=== PATIENT | female | born 1995 | race African-American/Black ===

== ENCOUNTER 2016-11-19 14:05 | Emergency (ER) | payer SELFPAY ==
[~2016-11-19] VITALS: Ht 162.6 cm; Wt 99.8 kg
[2016-11-19] MEDS ORDERED: IV NORMAL SALINE 1000ML BAG 1,000 ML IV SCH (15:00)
[2016-11-19] MEDS ORDERED: NAPROXEN 500 MG TABLET PO ONE (15:00)
[2016-11-19] MEDS ORDERED: IPRATRPIUM/ALBUTEROL 0.5/2.5MG 3 ML NEBU. NEB ONE (15:00)
[2016-11-19] MEDS ORDERED: PREDNISONE 20 MG TABLET PO ONE (15:00)
--- NOTE | 2016-11-19 15:00 | PHYS DOC ---
Past Medical History Past Medical History: Asthma, Bronchitis, Hypertension Additional Past Medical Histor: URI Past Surgical History: No Surgical History Alcohol Use: None Drug Use: None Adult General Chief Complaint Chief Complaint: Palpitations HPI HPI Patient is a 21 year old female who presents with chest tightness, shortness of breath, fever. Patient reports she has been having symptoms since yesterday. She also reports having a fever yesterday. The chest tightness is worse with movement. Otherwise no clear inciting or mitigating factors. She has not taken anything for symptoms. Patient says she has had similar symptoms in the past, but not quite this bad. No other acute complaints. Review of Systems Review of Systems Constitutional: Fever Eyes: Denies change in visual acuity or eye pain HENT: Denies nasal congestion or sore throat Respiratory: Cough, shortness of breath Cardiovascular: Tightness across chest GI: Denies abdominal pain, nausea, vomiting, bloody stools or diarrhea : Denies dysuria or hematuria Musculoskeletal: Denies back pain or joint pain Integument: Denies rash or skin lesions Neurologic: Denies headache, focal weakness or sensory changes Current Medications Current Medications Current Medications Medications (Trade) Dose Ordered Sig/Harjeet Start Time Stop Time Status Last Admin Dose Admin Albuterol/ Ipratropium (Duoneb) 3 ml 1X ONCE 11/19/16 15:00 11/19/16 15:06 DC 11/19/16 15:45 3 ML Naproxen (Naprosyn) 500 mg 1X ONCE 11/19/16 15:00 11/19/16 15:06 DC 11/19/16 15:34 500 MG Prednisone (Prednisone) 60 mg 1X ONCE 11/19/16 15:00 11/19/16 15:06 DC 11/19/16 15:34 60 MG Sodium Chloride (Iv Sodium Chloride 0.9% 1000ml Bag) 1,000 ml @ 1,000 mls/hr Q1H 11/19/16 15:00 11/19/16 15:59 DC 11/19/16 15:36 1,000 MLS/HR Allergies Allergies Allergies Coded Allergies Type Severity Reaction Last Updated Verified No Known Drug Allergies 05/30/14 No Physical Exam Physical Exam Constitutional: Well developed, well nourished, no acute distress, non-toxic appearance HENT: Normocephalic, atraumatic, bilateral external ears normal Eyes: EOMI, conjunctiva normal, no discharge Neck: Normal range of motion, no stridor Cardiovascular: Tachycardic, regular rhythm, no murmur Lungs & Thorax: Coarse breath sounds/wheezing throughout on expiration Abdomen: Bowel sounds normal, soft, non-distended, no TTP Skin: Warm, dry, no erythema, no rash Extremities: No obvious deformity, no edema Neurologic: Alert and oriented X 3, no gross deficits noted Current Patient Data Vital Signs Vital Signs Date Time Temp Pulse Resp B/P Pulse Ox O2 Delivery O2 Flow Rate FiO2 11/19/16 15:45 97 Room Air 11/19/16 15:37 113 22 137/67 11/19/16 14:22 98.2 98.2 Lab Values Laboratory Tests Test 11/19/16 14:33 11/19/16 15:25 POC Urine HCG, Qualitative Hcg negative (Negative) White Blood Count 8.9x10^3/uL (4.0-11.0) Red Blood Count 4.89x10^6/uL (3.50-5.40) Hemoglobin 9.1g/dL (12.0-15.5) L Hematocrit 30.7% (36.0-47.0) L Mean Corpuscular Volume 63fL (79-100) L Mean Corpuscular Hemoglobin 19pg (25-35) L Mean Corpuscular Hemoglobin Concent 30g/dL (31-37) L Red Cell Distribution Width 19.7% (11.5-14.5) H Platelet Count 390x10^3/uL (140-400) Neutrophils (%) (Auto) 65% (31-73) Lymphocytes (%) (Auto) 21% (24-48) L Monocytes (%) (Auto) 8% (0-9) Eosinophils (%) (Auto) 6% (0-3) H Basophils (%) (Auto) 0% (0-3) Neutrophils # (Auto) 5.8x10^3uL (1.8-7.7) Lymphocytes # (Auto) 1.8x10^3/uL (1.0-4.8) Monocytes # (Auto) 0.7x10^3/uL (0.0-1.1) Eosinophils # (Auto) 0.5x10^3/uL (0.0-0.7) Basophils # (Auto) 0.0x10^3/uL (0.0-0.2) Platelet Estimate Adequate (ADEQUATE) Polychromasia Slight Hypochromasia Mod Anisocytosis Slight Microcytosis Marked Target Cells Occ Ovalocytes Few Schistocytes Occ D-Dimer (Radha) 0.31ug/mlFEU (0.00-0.50) Sodium Level 143mmol/L (136-145) Potassium Level 3.5mmol/L (3.5-5.1) Chloride Level 104mmol/L (98-107) Carbon Dioxide Level 30mmol/L (21-32) Anion Gap 9 (6-14) Blood Urea Nitrogen 6mg/dL (7-20) L Creatinine 0.7mg/dL (0.6-1.0) Estimated GFR (Cockcroft-Gault) 125.5 Glucose Level 101mg/dL (70-99) H Calcium Level 9.2mg/dL (8.5-10.1) Troponin I Quantitative < 0.017ng/mL (0.000-0.055) Laboratory Tests 11/19/16 15:25 Laboratory Tests 11/19/16 15:25 EKG EKG EKG (my read): sinus rhythm, rate 122, normal axis, QTc 511ms, nonspecific T changes, no acute ST elevation Radiology/Procedures Radiology/Procedures CXR: IMPRESSION: No acute cardiopulmonary abnormality is detected. Course & Med Decision Making Course & Med Decision Making Pertinent Labs and Imaging studies reviewed. (See chart for details) Patient is 21-year-old female who presents with cough, shortness of breath, chest tightness. Suspect viral upper respiratory infection with asthma exacerbation. Will check EKG, chest x-ray, labs to evaluate. IV fluid bolus, breathing treatment, steroids, naproxen ordered for relief of symptoms. EKG and imaging results as above. Blood work unremarkable except for microcytic anemia. Discussed results with patient, who is feeling better at this time. Will discharge with prescription for steroid burst, albuterol inhaler, iron pills. Given instructions for close follow-up with PCP and return precautions. Dragon Disclaimer Dragon Disclaimer This electronic medical record was generated, in whole or in part, using a voice recognition dictation system. Departure Departure Impression: Primary Impression: Asthma exacerbation Additional Impressions: Upper respiratory infection Iron deficiency anemia Disposition: HOME, SELF-CARE Condition: IMPROVED Referrals: NO PCP (PCP) Patient Instructions: Asthma, Adult, Iron Deficiency Anemia, Upper Respiratory Infection, Adult Additional Instructions: Thank you for allowing us to provide care today in the Emergency Department. Take the provided medication as directed. If you have any further pain you can take acetaminophen, ibuprofen, or naproxen. Follow the directions on the label. Schedule a follow up appointment with your primary care doctor as soon as possible. Return promptly to the Emergency Department if you develop any new or concerning symptoms. Scripts Ferrous Sulfate 140 Mg Tablet.er140 Mg PO DAILY #30 Prov:RYDER RING MD 11/19/16 Prednisone 50 Mg Tablet1 Tab PO DAILY #4 TAB start taking 11/20/16 Prov:RYDER RING MD 11/19/16 Albuterol Sulfate (Proventil Hfa)6.7 Gm Hfa.aer.ad6.7 Gm IH Q4HRS PRN WHEEZING # 1 INHALER Ref 1 Prov:RYDER RING MD 11/19/16 Problem Qualifiers RYDER RING MD Nov 19, 2016 15:00
--- NOTE | 2016-11-19 15:19 | EKG ---
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 RI6.01 Unconfirmed report Electronically Signed On 11-25-2016 10:56:00 MECHANICAL ASSEMBLY by Seferino Gillis
[2016-11-19 15:37] VITALS: BP 137/67
[2016-11-19 15:39] LABS: BASO % 0 % (0-3); EOS % 6 % (0-3); HEMATOCRIT 30.7 % (36.0-47.0); HEMOGLOBIN 9.1 g/dL (12.0-15.5); LYMPH # 1.8 x10^3/uL (1.0-4.8); LYMPH % 21 % (24-48); MEAN CORPUSCULAR HEMOGLOBIN 19 pg (25-35); MEAN CORPUSCULAR HGB CONC 30 g/dL (31-37); MEAN CORPUSCULAR VOLUME 63 fL (79-100); MONO % 8 % (0-9); NEUT % 65 % (31-73); PLATELET COUNT 390 x10^3/uL (140-400); RED BLOOD COUNT 4.89 x10^6/uL (3.50-5.40); RED CELL DISTRIBUTION WIDTH 19.7 % (11.5-14.5); WHITE BLOOD COUNT 8.9 x10^3/uL (4.0-11.0)
[2016-11-19 15:50] LABS: CALCIUM 9.2 mg/dL (8.5-10.1); CREATININE 0.7 mg/dL (0.6-1.0); GFR 125.5; POTASSIUM 3.5 mmol/L (3.5-5.1)
--- NOTE | 2016-11-19 16:03 | RAD ---
Chest, 2 views, 11/19/2016: History: Chest pain, shortness of breath Comparison is made to a study from 02/06/2015. The heart size and pulmonary vascularity are normal. No pulmonary infiltrates are seen. There is no evidence of pleural fluid. IMPRESSION: No acute cardiopulmonary abnormality is detected.
[2016-11-19] MEDS ORDERED: PROVENTIL HFA6.7 G1 IH (17:14)
[2016-11-19] MEDS ORDERED: FERR140T2 PO (17:14)
[2016-11-19] MEDS ORDERED: PRED50TA PO (17:14)
[2016-11-19 17:45] LABS: ANISOCYTOSIS SLIGHT; HYPOCHROMIA MOD; MICROCYTOSIS MARKED; OVALOCYTES FEW; PLT ESTIMATE ADEQUATE (ADEQUATE); POLYCHROMASIA SLIGHT; SCHISTOCYTES OCC; TARGET CELLS OCC
== END 2016-11-19 17:33 | disposition home or self-care (01) ==
LOC: ER 14:05
DX: J45.901 Unspecified asthma with (acute) exacerbation (principal); D50.9 Iron deficiency anemia, unspecified; I10 Essential (primary) hypertension
CPT/HCPCS: 36415; 71020; 80048; 81025; 84484; 85007; 85027; 85379; 93005; 94250; 94640; 96360; 99285; J7030; J7512; J7620

== ENCOUNTER 2017-02-24 15:50 | Inpatient (IN) | payer SELFPAY ==
[~2017-02-24] VITALS: Ht 165.1 cm; Wt 95.8 kg
[~2017-02-24 15:50] MED LIST: FERR140T2 PO; PRED50TA PO; PROVENTIL HFA6.7 G1 IH
[2017-02-24 16:21] LABS: BASO # 0.1 x10^3/uL (0.0-0.2); BASO % 1 % (0-3); EOS % 7 % (0-3); HEMATOCRIT 30.7 % (36.0-47.0); HEMOGLOBIN 9.3 g/dL (12.0-15.5); LYMPH # 1.9 x10^3/uL (1.0-4.8); LYMPH % 15 % (24-48); MEAN CORPUSCULAR HEMOGLOBIN 19 pg (25-35); MEAN CORPUSCULAR HGB CONC 30 g/dL (31-37); MEAN CORPUSCULAR VOLUME 64 fL (79-100); MONO % 5 % (0-9); NEUT % 72 % (31-73); PLATELET COUNT 421 x10^3/uL (140-400); RED CELL DISTRIBUTION WIDTH 21.8 % (11.5-14.5); WHITE BLOOD COUNT 12.5 x10^3/uL (4.0-11.0)
[2017-02-24] MEDS ORDERED: methylPREDNISolone SOD SUCC PF 125 MG/2 ML VIAL. IV ONE (16:30)
[2017-02-24] MEDS ORDERED: ALBUTEROL SULFATE 2.5 MG/3 ML NEBU. CONT NEB ONE (16:30)
[2017-02-24] MEDS ORDERED: IV NORMAL SALINE 1000ML BAG 1,000 ML IV SCH (16:30)
[2017-02-24 16:43] LABS: CALCIUM 9.3 mg/dL (8.5-10.1); CREATININE 0.6 mg/dL (0.6-1.0); GFR 149.9; POTASSIUM 3.5 mmol/L (3.5-5.1)
[2017-02-24 16:49] LABS: ALBUMIN 3.8 g/dL (3.4-5.0); ALBUMIN/GLOBULIN RATIO 0.9 (1.0-1.7); TOTAL BILIRUBIN 0.5 mg/dL (0.2-1.0); TOTAL PROTEIN 8.2 g/dL (6.4-8.2)
[2017-02-24 17:18] LABS: BILIRUBIN,URINE NEGATIVE (NEG); GLUCOSE,URINE NEGATIVE (NEG); NITRITE,URINE NEGATIVE (NEG); PROTEIN,URINE NEGATIVE (NEG-TRACE); UROBILINOGEN,URINE 0.2 mg/dL (0.2 mg/dL)
--- NOTE | 2017-02-24 17:22 | PHYS DOC ---
Past Medical History Past Medical History: Asthma, Bronchitis, Hypertension Additional Past Medical Histor: URI Past Surgical History: No Surgical History Additional Information: 4 cigarettes daily Alcohol Use: None Drug Use: None Adult General Chief Complaint Chief Complaint: SHORTNESS OF BREATH HPI HPI Patient is a 21 year old female who presents with complaint of shortness of breath. Patient states that she has been having worsening asthma symptoms over the past 2 days, however she woke with severe symptoms this morning. Patient states that she is having significant difficulty breathing due to tightness in her chest. Patient used the last of her albuterol inhaler with no relief in symptoms. Patient denies any associated fevers or productive cough. Patient states that she is unable to walk farther than across a room without getting severely short of breath. Patient states that she has not been recently admitted to the hospital for asthma exacerbation. Patient does not follow with primary care doctor at this time. Patient denies any associated abdominal pain, nausea, or vomiting. Review of Systems Review of Systems Constitutional: Denies fever or chills [] Eyes: Denies change in visual acuity, redness, or eye pain [] HENT: Denies nasal congestion or sore throat [] Respiratory: Shortness of breath [] Cardiovascular: Denies chest pain or edema [] GI: Denies abdominal pain, nausea, vomiting, bloody stools or diarrhea [] : Denies dysuria or hematuria [] Musculoskeletal: Denies back pain or joint pain [] Integument: Denies rash or skin lesions [] Neurologic: Denies headache, focal weakness or sensory changes [] Current Medications Current Medications Current Medications Medications (Trade) Dose Ordered Sig/Harjeet Start Time Stop Time Status Last Admin Dose Admin Albuterol Sulfate (Ventolin Neb Soln) 10 mg 1X ONCE 02/24/17 16:30 02/24/17 16:31 DC 02/24/17 16:21 10 MG Methylprednisolone Sodium Succinate (SOLU-Medrol 125MG VIAL) 125 mg 1X ONCE 02/24/17 16:30 02/24/17 16:31 DC 02/24/17 16:21 125 MG Sodium Chloride 1,000 ml @ 1,000 mls/hr Q1H 02/24/17 16:30 02/24/17 17:29 DC 02/24/17 16:21 1,000 MLS/HR Allergies Allergies Allergies Coded Allergies Type Severity Reaction Last Updated Verified No Known Drug Allergies 05/30/14 No Physical Exam Physical Exam Constitutional: Alert, afebrile, appears in moderate to severe respiratory distress. [] HENT: Normocephalic, atraumatic, bilateral external ears normal, oropharynx moist, no oral exudates, nose normal. [] Eyes: PERRLA, EOMI, conjunctiva normal, no discharge. [] Neck: Normal range of motion, no tenderness, supple, no stridor. [] Cardiovascular: Tachycardia, regular rhythm, no murmur [] Lungs & Thorax: Moderate to severe restriction of air movement bilaterally, expiratory wheezes bilaterally, no rales [] Abdomen: Bowel sounds normal, soft, no tenderness, no masses, no pulsatile masses. [] Skin: Warm, dry, no erythema, no rash. [] Back: No tenderness, no CVA tenderness. [] Extremities: No tenderness, no cyanosis, no clubbing, ROM intact, no edema. [] Neurologic: Alert and oriented X 3, normal motor function, normal sensory function, no focal deficits noted. [] Current Patient Data Vital Signs Vital Signs Date Time Temp Pulse Resp B/P (MAP) Pulse Ox O2 Delivery O2 Flow Rate FiO2 02/24/17 16:45 128 24 136/69 (91) 95 Room Air Lab Values Laboratory Tests Test 02/24/17 16:10 02/24/17 17:10 White Blood Count 12.5 x10^3/uL (4.0-11.0) H Red Blood Count 4.80 x10^6/uL (3.50-5.40) Hemoglobin 9.3 g/dL (12.0-15.5) L Hematocrit 30.7 % (36.0-47.0) L Mean Corpuscular Volume 64 fL (79-100) L Mean Corpuscular Hemoglobin 19 pg (25-35) L Mean Corpuscular Hemoglobin Concent 30 g/dL (31-37) L Red Cell Distribution Width 21.8 % (11.5-14.5) H Platelet Count 421 x10^3/uL (140-400) H Neutrophils (%) (Auto) 72 % (31-73) Lymphocytes (%) (Auto) 15 % (24-48) L Monocytes (%) (Auto) 5 % (0-9) Eosinophils (%) (Auto) 7 % (0-3) H Basophils (%) (Auto) 1 % (0-3) Neutrophils # (Auto) 9.0 x10^3uL (1.8-7.7) H Lymphocytes # (Auto) 1.9 x10^3/uL (1.0-4.8) Monocytes # (Auto) 0.6 x10^3/uL (0.0-1.1) Eosinophils # (Auto) 0.8 x10^3/uL (0.0-0.7) H Basophils # (Auto) 0.1 x10^3/uL (0.0-0.2) Sodium Level 139 mmol/L (136-145) Potassium Level 3.5 mmol/L (3.5-5.1) Chloride Level 103 mmol/L (98-107) Carbon Dioxide Level 28 mmol/L (21-32) Anion Gap 8 (6-14) Blood Urea Nitrogen 5 mg/dL (7-20) L Creatinine 0.6 mg/dL (0.6-1.0) Estimated GFR (Cockcroft-Gault) 149.9 BUN/Creatinine Ratio 8 (6-20) Glucose Level 74 mg/dL (70-99) Calcium Level 9.3 mg/dL (8.5-10.1) Total Bilirubin 0.5 mg/dL (0.2-1.0) Aspartate Amino Transferase (AST) 19 U/L (15-37) Alanine Aminotransferase (ALT) 16 U/L (14-59) Alkaline Phosphatase 70 U/L (46-116) Total Protein 8.2 g/dL (6.4-8.2) Albumin 3.8 g/dL (3.4-5.0) Albumin/Globulin Ratio 0.9 (1.0-1.7) L Urine Collection Type Unknown Urine Color Yellow Urine Clarity Cloudy Urine pH 7.0 Urine Specific [place] <=1.005 Urine Protein Negative mg/dL (NEG-TRACE) Urine Glucose (UA) Negative mg/dL (NEG) Urine Ketones (Stick) Negative mg/dL (NEG) Urine Blood Negative (NEG) Urine Nitrite Negative (NEG) Urine Bilirubin Negative (NEG) Urine Urobilinogen Dipstick 0.2 mg/dL (0.2 mg/dL) Urine Leukocyte Esterase Trace (NEG) Urine RBC 0 /HPF (0-2) Urine WBC 1-4 /HPF (0-4) Urine Squamous Epithelial Cells Few /LPF Urine Bacteria Few /HPF (0-FEW) Laboratory Tests 02/24/17 16:10 Laboratory Tests 02/24/17 16:10 EKG EKG Interpreted by me: Heart rate 120, sinus tachycardia, normal intervals, normal axis, no acute ST/T-wave abnormalities present [] Radiology/Procedures Radiology/Procedures One view AP chest x-ray interpreted by me: No infiltrate, no effusions, normal cardiac silhouette [] Course & Med Decision Making Course & Med Decision Making Pertinent Labs and Imaging studies reviewed. (See chart for details) Patient was given 125 mg of IV Solu-Medrol and given 10 mg of albuterol per nebulizer treatment over one hour continuously. On reevaluation, patient's air movement has improved mild to moderately. Patient continues to be significantly short of breath with minimal exertion and patient's oxygen saturations are at 90 -91 percent. The patient requires admission to the hospital for further management of her acute asthma exacerbation. I spoke with Dr. Cantrell who accepted care of patient in hospital. Dragon Disclaimer Dragon Disclaimer This electronic medical record was generated, in whole or in part, using a voice recognition dictation system. Departure Departure Impression: Primary Impression: Acute severe exacerbation of asthma Disposition: ADMITTED INPATIENT Admitting Physician: Other Condition: GUARDED Referrals: NO PCP (PCP) LAURA MAC MD Feb 24, 2017 17:22
[2017-02-24 17:27] LABS: BACTERIA,URINE FEW /HPF (0-FEW); RBC,URINE 0 /HPF (0-2); SQUAMOUS EPITHELIAL CELL,UR FEW /LPF
--- NOTE | 2017-02-24 17:59 | ACF ---
Admission Forms Criteria ASTHMA Clinical Indications for Admission to Inpatient Care (Place 'X' for any and all applicable criteria): Admission is indicated for ANY ONE of the following (1)(2)(3)(4)(5): [ ]I. Absent or markedly diminished breath sounds (silent chest) [ ]II. Oxygen saturation < 92% [ ]III. PaCO2 = / > 42 mm Hg (5.6 kPa) [ ]IV. Peak expiratory flow rate < 40% of predicted or personal best after treatment. [ ]V. Peak expiratory flow rate < 33% of predicted or personal before after treatment [ ]. Change in mental status [ ]VII. Ventilatory support required [ ]VIII. PaO2 < 60 mm Hg (8.0 kPa) [ ]IX. Cyanosis [ ]X. Cardiac dysrhythmia (e.g., bradycardia) [ ]XI. Hemodynamic instability [ ]XII. Radiographic evidence of complication requiring inpatient treatment (e.g., pneumonia, pneumothorax) [X]XIII. Inpatient admission required rather than observation care (also use Asthma: Observation Care guideline as appropriate) because of ANY ONE of the following: [X]a) Respiratory finding that is severe or persistent (eg, dyspnea, tachypnea, accessory muscle use) [ ]b) Airflow measurements less than 60% of predicted or personal best that persist (e.g., over 24 hours) or worsen despite treatments [ ]c) Supplemental oxygen or respiratory treatments for over 24 hours that are performable only in acute inpatient setting [ ]d) Other condition, treatment or monitoring requiring inpatient admission. Extended stay beyond goal length of stay may be needed for (26)(27)(28): [ ]a) Severe respiratory failure (23) (29) (30) [ ]b) Secondary causes and complications (25) [ ]c) Status asthmaticus [ ]d) Chronic obstructive asthma [ ]e) Older patients (29) [ ]f) Slow resolution [ ]g) Clinically significant exacerbation of comorbidities (eg, angel luis. heart failure, atrial fibrillation) The original [employer] content created by [employer] has been revised. The portions of the content which have been revised are identified through the use of italic text or in bold, and [facility] [employer] has neither reviewed nor approved the modified material. All other unmodified content is copyright [facility] Please see references footnoted in the original [facility] edition 2016 Admission Criteria Met?: Yes LINDA NIEVES Feb 24, 2017 17:59
[2017-02-24 18:10] LABS: PLT ESTIMATE INCREASED (ADEQUATE)
[2017-02-24 18:13] LABS: ANISOCYTOSIS MOD; HYPOCHROMIA MOD; MICROCYTOSIS MOD; POIKILOCYTOSIS MOD; POLYCHROMASIA SLIGHT
[2017-02-24 18:14] LABS: OVALOCYTES MOD; SCHISTOCYTES OCC; TEAR DROP CELLS FEW
[2017-02-24] MEDS ORDERED: ONDANSETRON PF 4 MG/2 ML VIAL. IV PRN (18:15)
[2017-02-24] MEDS ORDERED: ACETAMINOPHEN 325 MG TABLET. PO PRN (18:15)
[2017-02-24] MEDS: IV NORMAL SALINE 1000ML BAG 1,000 ML IV SCH (19:45)
[2017-02-24] MEDS: IPRATRPIUM/ALBUTEROL 0.5/2.5MG 3 ML NEBU. NEB SCH (20:11)
[2017-02-24 20:13] VITALS: BP 133/73
[2017-02-24] MEDS ORDERED: ALBUTEROL SULFATE 2.5 MG/3 ML NEBU. NEB PRN (21:30)
--- NOTE | 2017-02-24 23:04 | HP ---
ADMIT DATE: 02/24/2017 CHIEF COMPLAINT: Asthma exacerbation. HISTORY OF PRESENT ILLNESS: The patient is a 21-year-old -[place] woman with past medical history of asthma, who presented with severe shortness of breath. She relates that her symptoms slowly started over the past day initially with a productive cough. She initially attributed this to allergies, although she had never symptoms like this before. She denied any fevers or chills. Breathing difficulties were getting worse and worse with chest tightness make in it unable for her to breathe. She was not able to walk due to severe shortness of breath. She only has albuterol inhaler at home, which she actually ran out of today. She does not have a PCP and is not following up with a policy director. Her previous asthma exacerbations typically resolved in the Emergency Room. She has never been intubated for this. PAST MEDICAL HISTORY: Asthma and hypertension. FAMILY HISTORY: negative for asthma except for possibly paternal grandfather. 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 No other drug use. ALLERGIES: No known drug allergies. HOME MEDICATIONS: Reconciled with MAR. REVIEW OF SYSTEMS: Positive as per HPI. Rest of organ system review is negative. PHYSICAL EXAMINATION: VITAL SIGNS: From today show a blood pressure of 133/73, heart rate of 112, respiratory rate of 22. She is afebrile. GENERAL: This is an obese, 21-year-old, -[place] woman, alert and oriented, in no acute distress. HEENT: Shows no scleral icterus. NECK: Supple. LUNGS: Fairly clear with good air movement at this time. Mild upper airway, rhonchi present. HEART: Slightly tachycardic. ABDOMEN: Obese, positive bowel sounds. EXTREMITIES: Show no edema. SKIN: Warm, soft and dry. LABORATORY DATA: CBC with a WBC of 12.5, hemoglobin 9.3 with an MCV of 64, platelets of 421. Chemistries with a BUN and creatinine of 5 and 0.6, normal electrolytes, normal LFTs. Urine negative for infectious signs. IMAGING STUDIES: Show a chest x-ray, which was reviewed by myself with no acute cardiopulmonary findings. ASSESSMENT AND PLAN: The patient is a 21-year-old woman presenting with asthma exacerbation. Although, presentation in the Emergency Room was quite severe, she has significantly improved in the past few hours. We will continue IV steroids, which probably can be switched to p.o. in a.m. Continue inhalers for the time being. Supplemental oxygen as needed. Consult to Pulmonary will be obtained in the a.m. Suspect this may have been prompted by upper respiratory infection, possibly viral. Without any fevers, we will hold off on antibiotics for now. The patient has severe microcytic anemia, which I suspect is Iron deficiency. We will obtain additional labs in a.m. to elucidate, replete as needed. Potential history of sickle cell anemia is not excluded, although no signs on peripheral smear. JUANIS OTTO MD DR: UR/nts JOB#: [id number] / [id number] LAURENCE
[2017-02-24 23:19] VITALS: BP 120/57
[2017-02-25] MEDS ORDERED: methylPREDNISolone SOD SUCC PF 40 MG/ML VIAL. IV SCH
[2017-02-25 03:42] VITALS: BP 133/66
[2017-02-25 04:14] LABS: BASO % 0 % (0-3); EOS % 0 % (0-3); HEMATOCRIT 30.5 % (36.0-47.0); HEMOGLOBIN 9.1 g/dL (12.0-15.5); LYMPH # 1.1 x10^3/uL (1.0-4.8); LYMPH % 8 % (24-48); MEAN CORPUSCULAR HEMOGLOBIN 19 pg (25-35); MEAN CORPUSCULAR HGB CONC 30 g/dL (31-37); MEAN CORPUSCULAR VOLUME 64 fL (79-100); MONO % 1 % (0-9); NEUT % 91 % (31-73); PLATELET COUNT 447 x10^3/uL (140-400); RED BLOOD COUNT 4.77 x10^6/uL (3.50-5.40); RED CELL DISTRIBUTION WIDTH 21.5 % (11.5-14.5); WHITE BLOOD COUNT 14.1 x10^3/uL (4.0-11.0)
[2017-02-25 04:25] LABS: CALCIUM 9.1 mg/dL (8.5-10.1); CREATININE 0.8 mg/dL (0.6-1.0); GFR 107.6; POTASSIUM 4.1 mmol/L (3.5-5.1)
[2017-02-25 04:32] LABS: % SAT IRON 3 % (15-34); IRON,SERUM 14 ug/dL (50-170)
[2017-02-25] MEDS: IV NORMAL SALINE 1000ML BAG 1,000 ML IV SCH (06:10)
[2017-02-25 07:00] VITALS: BP 140/87
--- NOTE | 2017-02-25 07:42 | EKG ---
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
[2017-02-25] MEDS ORDERED: FERROUS SULFATE 325 MG TABLET. PO SCH (08:00)
--- NOTE | 2017-02-25 08:00 | RAD ---
Portable chest, 02/24/2017: History: Shortness of breath Comparison is made to a study from 11/19/2016. The heart size and pulmonary vascularity are normal. The lungs are clear. There is no evidence of pleural fluid. IMPRESSION: No acute cardiopulmonary abnormality is detected.
[2017-02-25] MEDS: IPRATRPIUM/ALBUTEROL 0.5/2.5MG 3 ML NEBU. NEB SCH ×2 (08:02→12:00)
[2017-02-25] MEDS ORDERED: predniSONE 20 MG TABLET PO SCH (09:00)
[2017-02-25 09:24] LABS: PLT ESTIMATE INCREASED (ADEQUATE)
[2017-02-25 09:25] LABS: ANISOCYTOSIS MOD; HYPOCHROMIA MARKED; MICROCYTOSIS MARKED; POIKILOCYTOSIS PRESENT; SCHISTOCYTES FEW
[2017-02-25 11:00] VITALS: BP 135/67
--- NOTE | 2017-02-25 12:06 | PDOC ---
PULMONARY PROGRESS NOTES Vitals Vital Signs Date Time Temp Pulse Resp B/P (MAP) Pulse Ox O2 Delivery O2 Flow Rate FiO2 02/25/17 11:00 98.2 100 22 135/67 (89) 93 Room Air 98.2 Labs Laboratory Tests Test 02/24/17 16:10 02/24/17 17:10 02/25/17 03:20 White Blood Count 12.5 x10^3/uL (4.0-11.0) 14.1 x10^3/uL (4.0-11.0) Red Blood Count 4.80 x10^6/uL (3.50-5.40) 4.77 x10^6/uL (3.50-5.40) Hemoglobin 9.3 g/dL (12.0-15.5) 9.1 g/dL (12.0-15.5) Hematocrit 30.7 % (36.0-47.0) 30.5 % (36.0-47.0) Mean Corpuscular Volume 64 fL (79-100) 64 fL (79-100) Mean Corpuscular Hemoglobin 19 pg (25-35) 19 pg (25-35) Mean Corpuscular Hemoglobin Concent 30 g/dL (31-37) 30 g/dL (31-37) Red Cell Distribution Width 21.8 % (11.5-14.5) 21.5 % (11.5-14.5) Platelet Count 421 x10^3/uL (140-400) 447 x10^3/uL (140-400) Neutrophils (%) (Auto) 72 % (31-73) 91 % (31-73) Lymphocytes (%) (Auto) 15 % (24-48) 8 % (24-48) Monocytes (%) (Auto) 5 % (0-9) 1 % (0-9) Eosinophils (%) (Auto) 7 % (0-3) 0 % (0-3) Basophils (%) (Auto) 1 % (0-3) 0 % (0-3) Neutrophils # (Auto) 9.0 x10^3uL (1.8-7.7) 12.9 x10^3uL (1.8-7.7) Lymphocytes # (Auto) 1.9 x10^3/uL (1.0-4.8) 1.1 x10^3/uL (1.0-4.8) Monocytes # (Auto) 0.6 x10^3/uL (0.0-1.1) 0.1 x10^3/uL (0.0-1.1) Eosinophils # (Auto) 0.8 x10^3/uL (0.0-0.7) 0.0 x10^3/uL (0.0-0.7) Basophils # (Auto) 0.1 x10^3/uL (0.0-0.2) 0.0 x10^3/uL (0.0-0.2) Platelet Estimate Increased (ADEQUATE) Increased (ADEQUATE) Polychromasia Slight Hypochromasia Mod Marked Poikilocytosis Mod Present Anisocytosis Mod Mod Microcytosis Mod Marked Macrocytosis Slight Tear Drop Cells Few Ovalocytes Mod Schistocytes Occ Few Sodium Level 139 mmol/L (136-145) 140 mmol/L (136-145) Potassium Level 3.5 mmol/L (3.5-5.1) 4.1 mmol/L (3.5-5.1) Chloride Level 103 mmol/L (98-107) 104 mmol/L (98-107) Carbon Dioxide Level 28 mmol/L (21-32) 27 mmol/L (21-32) Anion Gap 8 (6-14) 9 (6-14) Blood Urea Nitrogen 5 mg/dL (7-20) 7 mg/dL (7-20) Creatinine 0.6 mg/dL (0.6-1.0) 0.8 mg/dL (0.6-1.0) Estimated GFR (Cockcroft-Gault) 149.9 107.6 BUN/Creatinine Ratio 8 (6-20) Glucose Level 74 mg/dL (70-99) 206 mg/dL (70-99) Calcium Level 9.3 mg/dL (8.5-10.1) 9.1 mg/dL (8.5-10.1) Total Bilirubin 0.5 mg/dL (0.2-1.0) Aspartate Amino Transf (AST/SGOT) 19 U/L (15-37) Alanine Aminotransferase (ALT/SGPT) 16 U/L (14-59) Alkaline Phosphatase 70 U/L (46-116) Total Protein 8.2 g/dL (6.4-8.2) Albumin 3.8 g/dL (3.4-5.0) Albumin/Globulin Ratio 0.9 (1.0-1.7) Urine Collection Type Unknown Urine Color Yellow Urine Clarity Cloudy Urine pH 7.0 Urine Specific [place] <=1.005 Urine Protein Negative mg/dL (NEG-TRACE) Urine Glucose (UA) Negative mg/dL (NEG) Urine Ketones (Stick) Negative mg/dL (NEG) Urine Blood Negative (NEG) Urine Nitrite Negative (NEG) Urine Bilirubin Negative (NEG) Urine Urobilinogen Dipstick 0.2 mg/dL (0.2 mg/dL) Urine Leukocyte Esterase Trace (NEG) Urine RBC 0 /HPF (0-2) Urine WBC 1-4 /HPF (0-4) Urine Squamous Epithelial Cells Few /LPF Urine Bacteria Few /HPF (0-FEW) Segmented Neutrophils % 84 % (35-66) Band Neutrophils % 2 % (0-9) Lymphocytes % 14 % (24-48) Large Platelets Present Iron Level 14 ug/dL (50-170) Total Iron Binding Capacity 451 ug/dL (250-450) Iron Saturation 3 % (15-34) Ferritin 17 ng/mL (8-252) Laboratory Tests Test 02/24/17 16:10 02/24/17 17:10 02/25/17 03:20 White Blood Count 12.5 x10^3/uL (4.0-11.0) 14.1 x10^3/uL (4.0-11.0) Red Blood Count 4.80 x10^6/uL (3.50-5.40) 4.77 x10^6/uL (3.50-5.40) Hemoglobin 9.3 g/dL (12.0-15.5) 9.1 g/dL (12.0-15.5) Hematocrit 30.7 % (36.0-47.0) 30.5 % (36.0-47.0) Mean Corpuscular Volume 64 fL (79-100) 64 fL (79-100) Mean Corpuscular Hemoglobin 19 pg (25-35) 19 pg (25-35) Mean Corpuscular Hemoglobin Concent 30 g/dL (31-37) 30 g/dL (31-37) Red Cell Distribution Width 21.8 % (11.5-14.5) 21.5 % (11.5-14.5) Platelet Count 421 x10^3/uL (140-400) 447 x10^3/uL (140-400) Neutrophils (%) (Auto) 72 % (31-73) 91 % (31-73) Lymphocytes (%) (Auto) 15 % (24-48) 8 % (24-48) Monocytes (%) (Auto) 5 % (0-9) 1 % (0-9) Eosinophils (%) (Auto) 7 % (0-3) 0 % (0-3) Basophils (%) (Auto) 1 % (0-3) 0 % (0-3) Neutrophils # (Auto) 9.0 x10^3uL (1.8-7.7) 12.9 x10^3uL (1.8-7.7) Lymphocytes # (Auto) 1.9 x10^3/uL (1.0-4.8) 1.1 x10^3/uL (1.0-4.8) Monocytes # (Auto) 0.6 x10^3/uL (0.0-1.1) 0.1 x10^3/uL (0.0-1.1) Eosinophils # (Auto) 0.8 x10^3/uL (0.0-0.7) 0.0 x10^3/uL (0.0-0.7) Basophils # (Auto) 0.1 x10^3/uL (0.0-0.2) 0.0 x10^3/uL (0.0-0.2) Platelet Estimate Increased (ADEQUATE) Increased (ADEQUATE) Polychromasia Slight Hypochromasia Mod Marked Poikilocytosis Mod Present Anisocytosis Mod Mod Microcytosis Mod Marked Macrocytosis Slight Tear Drop Cells Few Ovalocytes Mod Schistocytes Occ Few Sodium Level 139 mmol/L (136-145) 140 mmol/L (136-145) Potassium Level 3.5 mmol/L (3.5-5.1) 4.1 mmol/L (3.5-5.1) Chloride Level 103 mmol/L (98-107) 104 mmol/L (98-107) Carbon Dioxide Level 28 mmol/L (21-32) 27 mmol/L (21-32) Anion Gap 8 (6-14) 9 (6-14) Blood Urea Nitrogen 5 mg/dL (7-20) 7 mg/dL (7-20) Creatinine 0.6 mg/dL (0.6-1.0) 0.8 mg/dL (0.6-1.0) Estimated GFR (Cockcroft-Gault) 149.9 107.6 BUN/Creatinine Ratio 8 (6-20) Glucose Level 74 mg/dL (70-99) 206 mg/dL (70-99) Calcium Level 9.3 mg/dL (8.5-10.1) 9.1 mg/dL (8.5-10.1) Total Bilirubin 0.5 mg/dL (0.2-1.0) Aspartate Amino Transf (AST/SGOT) 19 U/L (15-37) Alanine Aminotransferase (ALT/SGPT) 16 U/L (14-59) Alkaline Phosphatase 70 U/L (46-116) Total Protein 8.2 g/dL (6.4-8.2) Albumin 3.8 g/dL (3.4-5.0) Albumin/Globulin Ratio 0.9 (1.0-1.7) Urine Collection Type Unknown Urine Color Yellow Urine Clarity Cloudy Urine pH 7.0 Urine Specific [place] <=1.005 Urine Protein Negative mg/dL (NEG-TRACE) Urine Glucose (UA) Negative mg/dL (NEG) Urine Ketones (Stick) Negative mg/dL (NEG) Urine Blood Negative (NEG) Urine Nitrite Negative (NEG) Urine Bilirubin Negative (NEG) Urine Urobilinogen Dipstick 0.2 mg/dL (0.2 mg/dL) Urine Leukocyte Esterase Trace (NEG) Urine RBC 0 /HPF (0-2) Urine WBC 1-4 /HPF (0-4) Urine Squamous Epithelial Cells Few /LPF Urine Bacteria Few /HPF (0-FEW) Segmented Neutrophils % 84 % (35-66) Band Neutrophils % 2 % (0-9) Lymphocytes % 14 % (24-48) Large Platelets Present Iron Level 14 ug/dL (50-170) Total Iron Binding Capacity 451 ug/dL (250-450) Iron Saturation 3 % (15-34) Ferritin 17 ng/mL (8-252) Medications Active Scripts Medications Dose Route/Sig Max Daily Dose Days Date Category Dose Instructions Ferrous Sulfate 140 Mg Tablet.er 140 Mg PO DAILY 11/19/16 Rx Prednisone 50 Mg Tablet 1 Tab PO DAILY 11/19/16 Rx start taking 11/20/16 Proventil Hfa (Albuterol Sulfate) 6.7 Gm Hfa.aer.ad 6.7 Gm IH Q4HRS PRN 11/19/16 Rx No Known Medications Prior To Admisstion (Info) Each 1 Each 05/30/14 Reported Impression . FULL CONSULT DICTATED OK TO D/C ON PRED TAPER AND DOXY NO NEED FOR STEROIDS MDI D/C SMOKING EUGENE HOOVER MD Feb 25, 2017 12:06
--- NOTE | 2017-02-25 23:43 | DS ---
DATE OF DISCHARGE: 02/25/2017 ADMISSION DIAGNOSIS: Asthma. DISCHARGE DIAGNOSIS: Resolving asthma. HOSPITAL COURSE: The patient is a pleasant 21-year-old female presented with asthma exacerbation. She was admitted. We gave her IV steroids, breathing treatments, oxygen. Today she did better. We discharged to home. The patient was seen and examined this morning. HEART: Normal. LUNGS: Were slightly wheezing, but improved. ABDOMEN: Soft. EXTREMITIES: No edema. SKIN: No rashes. DISPOSITION: Home. ACTIVITY: As tolerated. DIET: Low sodium. MEDICATIONS: Please see the MRAD. TOTAL TIME: 32 minutes. FRANCEL Darvin NEAL DO DR: Selena JOB#: [id number] / [id number]
--- NOTE | 2017-02-26 03:31 | CONS ---
DATE OF CONSULTATION: 02/25/2017 ATTENDING PHYSICIAN: Payton Cantrell MD DICTATING PHYSICIAN: Eugene Hoover MD REASON FOR CONSULTATION: The patient seen in pulmonary consultation at the request of Dr. Cantrell for asthma exacerbation. HISTORY OF PRESENT ILLNESS: The patient is a 21-year-old ____ asthma most of her life, only does well when she has not had an acute episode. She utilizes albuterol on a p.r.n. basis, maybe once a month or so. She had not had any frequent exacerbations requiring Emergency Room visit. She has never been hospitalized in fact this was the first time she was ever hospitalized or seen in the Emergency Room. She smokes approximately 2-3 cigarettes a day. She denies fever or chills. She states that this particular episode was initiated with sore throat, runny nose. There is no history of allergies. She has no new occupational exposures, no new pets at the house. PAST MEDICAL HISTORY: Asthma as indicated above, hypertension. PAST SURGICAL HISTORY: None. SOCIAL HISTORY: She smokes approximately four cigarettes a day. ALLERGIES: No known drug allergies. FAMILY HISTORY: Paternal grandfather with asthma. MEDICATIONS: List was reviewed. Please see the MRAD. REVIEW OF SYSTEMS: As indicated above, otherwise a 10-point system was reviewed and negative. PHYSICAL EXAMINATION: VITAL SIGNS: Stable. O2 saturation was greater than 92%. HEENT: Eyes, the sclerae were nonicteric. NECK: Jugular venous distention was not elevated. No lymphadenopathy. CHEST: Full expansion. LUNGS: Coarse breath sounds with mild expiratory wheeze. CARDIOVASCULAR: Regular rate and rhythm with S1, S2, no S3. ABDOMEN: Soft, nontender, obese. EXTREMITIES: No clubbing, cyanosis or edema. LABORATORY DATA: Reviewed. White count was slightly elevated. Initial white count differential showed slight increase in the eosinophil count. Electrolytes were noted. BUN and creatinine was noted. UA was noted. IMAGING STUDIES: Chest x-ray revealed no acute cardiopulmonary process. IMPRESSION: 1. Asthma exacerbation, suspect secondary to upper respiratory tract infection. 2. Upper respiratory tract infection. 3. Tobacco dependence. PLAN: 1. The patient is doing well, okay to discharge home on prednisone taper and doxycycline. 2. The patient instructed on the importance to discontinue her tobacco use. 3. Considering that the patient is normal use of p.r.n. albuterol, averaging maybe one to twice a month. I do not recommend maintenance of steroids and metered dose inhaler. I do appreciate the privilege in sharing in the patient's care. EUGENE HOOVER MD DR: MARTIN/steve JOB#: [id number] / [id number]
== END 2017-02-25 13:35 | disposition home or self-care (01) | DRG 203 ==
LOC: ER 15:50 → 6 SOUTH 17:20
PROVIDERS: ADMIT Internal Medicine Hematology & Oncology; ATTEND Internal Medicine Hematology & Oncology
DX: J45.901 Unspecified asthma with (acute) exacerbation (principal); I10 Essential (primary) hypertension; F17.210 Nicotine dependence, cigarettes, uncomplicated; D50.9 Iron deficiency anemia, unspecified; E66.9 Obesity, unspecified; J02.9 Acute pharyngitis, unspecified; R26.2 Difficulty in walking, not elsewhere classified; Z79.899 Other long term (current) drug therapy; Z82.5 Family history of asthma and other chronic lower respiratory diseases; Z79.1 Long term (current) use of non-steroidal anti-inflammatories (NSAID); Z68.35 Body mass index [BMI] 35.0-35.9, adult
CPT/HCPCS: 36415; 71010; 80048; 80053; 81001; 82728; 83540; 83550; 85007; 85027; 87086; 93005; 94640; 94644; 94760; 96361; 96374; J2930; J7030; J7512; J7620; 99285-25

== ENCOUNTER 2017-05-22 14:28 | Emergency (ER) | payer SELFPAY ==
[~2017-05-22] VITALS: Ht 162.6 cm; Wt 108.9 kg
[2017-05-22 14:44] VITALS: BP 157/78
--- NOTE | 2017-05-22 14:56 | PHYS DOC ---
Past Medical History Past Medical History: Asthma, Bronchitis, Hypertension Additional Past Medical Histor: URI Past Surgical History: No Surgical History Alcohol Use: None Drug Use: None Adult General Chief Complaint Chief Complaint: ASTHMA HPI HPI Patient is a 21 year old female presents to the emergency department stating that she's been having shortness of air with wheezing. She states it has been approximately 3 months since she's been on any type of steroids or antibiotics. Patient denies any fever, chills or any nausea or vomiting. Patient does state she still smokes cigarettes. Review of Systems Review of Systems Constitutional: Denies fever or chills [] Eyes: Denies change in visual acuity, redness, or eye pain [] HENT: Denies nasal congestion or sore throat [] Respiratory: Denies cough. Complaint of shortness of air with wheezing Cardiovascular: No additional information not addressed in HPI [] GI: Denies abdominal pain, nausea, vomiting, bloody stools or diarrhea [] : Denies dysuria or hematuria [] Musculoskeletal: Denies back pain or joint pain [] Integument: Denies rash or skin lesions [] Neurologic: Denies headache, focal weakness or sensory changes [] Endocrine: Denies polyuria or polydipsia [] Current Medications Current Medications Current Medications Medications (Trade) Dose Ordered Sig/[facility] Start Time Stop Time Status Last Admin Dose Admin Albuterol/ Ipratropium (Duoneb) 3 ml 1X ONCE 05/22/17 15:00 05/22/17 15:01 DC 05/22/17 14:59 3 ML Prednisone (Prednisone) 40 mg 1X ONCE 05/22/17 15:00 05/22/17 15:01 DC 05/22/17 15:03 40 MG Allergies Allergies Allergies Coded Allergies Type Severity Reaction Last Updated Verified No Known Drug Allergies 05/30/14 No Physical Exam Physical Exam Constitutional: Well developed, well nourished, no acute distress, non-toxic appearance. [] HENT: Normocephalic, atraumatic, bilateral external ears normal, oropharynx moist, no oral exudates, nose normal. [] Eyes: PERRLA, EOMI, conjunctiva normal, no discharge. [] Neck: Normal range of motion, no tenderness, supple, no stridor. [] Cardiovascular:Heart rate regular rhythm, no murmur [] Lungs & Thorax: Breath sound with wheezes noted on right upper lobe. Slightly diminished breath sounds throughout. Skin: Warm, dry, no erythema, no rash. [] Back: No tenderness Extremities: No tenderness, no cyanosis, no clubbing, ROM intact, no edema. [] Neurologic: Alert and oriented X 3, normal motor function, normal sensory function, no focal deficits noted. [] Psychologic: Affect normal, judgement normal, mood normal. [] Current Patient Data Vital Signs Vital Signs Date Time Temp Pulse Resp B/P (MAP) Pulse Ox O2 Delivery O2 Flow Rate FiO2 05/22/17 14:59 100 Room Air 05/22/17 14:44 98.4 102 20 98.4 Lab Values Laboratory Tests Test 05/22/17 13:59 POC Urine HCG, Qualitative Hcg negative (Negative) EKG EKG [] Radiology/Procedures Radiology/Procedures [] Course & Med Decision Making Course & Med Decision Making Pertinent Labs and Imaging studies reviewed. (See chart for details) Patient was provided with respiratory tx, and prednisone. Patient will be discharged home in stable condition. Signs and symptoms to return to the emergency department has been provided. Patient will be provided with prescription for nebulizer machine. Patient will be provided with prescription for prednisone. Neel agrees with discharge instructions, treatment regimen and followup regimen. All questions and concerns have been answered. [] Dragon Disclaimer Dragon Disclaimer This electronic medical record was generated, in whole or in part, using a voice recognition dictation system. Departure Departure Impression: Primary Impression: Asthma exacerbation Disposition: HOME, SELF-CARE Condition: STABLE Referrals: NO PCP (PCP) Patient Instructions: Asthma, Adult, [id number], Smoking, You Can Quit, Easy- to-Read Additional Instructions: Activity as tolerated Medication as prescribed Tylenol or Ibuprofen for fever, chills, or generalized body aches Drink plenty of fluids Followup with primary care provider in 5-7 days Return to emergency department as needed for signs and symptoms that become worse. Scripts Ipratropium/Albuterol Sulfate (DUONEB 0.5-3(2.5) MG/3 ML) 3 Ml Ampul.neb 3 ML NEB QID, #120 EACH Prov: LUISA GUTIERREZ APRN 05/22/17 Prednisone (PREDNISONE) 20 Mg Tablet 20 MG PO DAILY for 7 Days, #7 TAB Prov: LUISA GUTIERREZ APRN 05/22/17 LUISA GUTIERREZ APRN May 22, 2017 14:56
[2017-05-22] MEDS ORDERED: predniSONE 20 MG TABLET PO ONE (15:00)
[2017-05-22] MEDS ORDERED: IPRATRPIUM/ALBUTEROL 0.5/2.5MG 3 ML NEBU. NEB ONE (15:00)
[2017-05-22] MEDS ORDERED: IPRA3AMP NEB (15:43)
[2017-05-22] MEDS ORDERED: PRED20TA PO (15:43)
== END 2017-05-22 15:50 | disposition home or self-care (01) ==
LOC: ER 14:28
DX: J45.901 Unspecified asthma with (acute) exacerbation (principal); I10 Essential (primary) hypertension; F17.210 Nicotine dependence, cigarettes, uncomplicated
CPT/HCPCS: 81025; 94250; 94640; 99283; J7512; J7620

== ENCOUNTER 2017-05-29 11:57 | Emergency (ER) | payer SELFPAY ==
[~2017-05-29] VITALS: Ht 162.6 cm; Wt 99.8 kg
[~2017-05-29 11:57] MED LIST changes: +IPRA3AMP NEB; +PRED20TA PO
[2017-05-29 12:19] VITALS: BP 165/97
--- NOTE | 2017-05-29 12:41 | PHYS DOC ---
Past Medical History Past Medical History: Asthma, Bronchitis, Hypertension Additional Past Medical Histor: URI Past Surgical History: No Surgical History Alcohol Use: None Drug Use: None Adult General Chief Complaint Chief Complaint: ASTHMA HPI HPI Patient is a 21 year old F who presents with wheezing for the past day and a half. Patient has a history of asthma and smoking and is out of her albuterol inhaler and has been wheezing for the past day and a half. Patient denies any fevers. Patient denies any productive cough. Patient denies any chest pain or shortness of breath. Patient has no other complaints. Review of Systems Review of Systems GEN: Denies fevers, chills, sweats HEENT: Denies blurred vision, sore throat CV: Denies chest pain RESP: Wheezing GI: Denies n/v/d NEURO: Denies confusion, dizziness MSK: Denies weakness, joint pain/swelling Current Medications Current Medications Current Medications Medications (Trade) Dose Ordered Sig/[facility] Start Time Stop Time Status Last Admin Dose Admin Albuterol/ Ipratropium (Duoneb) 3 ml 1X ONCE 05/29/17 12:45 05/29/17 12:46 DC 05/29/17 13:13 3 ML Dexamethasone Sodium Phosphate (Decadron) 10 mg 1X ONCE 05/29/17 12:45 05/29/17 12:46 DC 05/29/17 13:10 10 MG Allergies Allergies Allergies Coded Allergies Type Severity Reaction Last Updated Verified No Known Drug Allergies 05/30/14 No Physical Exam Physical Exam GEN.: No apparent distress. Alert and oriented. HEENT: Head is normocephalic, atraumatic NECK: Supple. LUNGS: Wheezing bilaterally, inspiratory and expiratory wheezes HEART: RRR, S1, S2 present. Peripheral pulses intact ABDOMEN: Soft, nontender. Positive bowel sounds. EXTREMITIES: Without any cyanosis. NEUROLOGIC: Normal speech, normal tone PSYCHIATRIC: Normal affect, normal mood. SKIN: No ulcerations Current Patient Data Vital Signs Vital Signs Date Time Temp Pulse Resp B/P (MAP) Pulse Ox O2 Delivery O2 Flow Rate FiO2 05/29/17 13:14 92 Room Air 05/29/17 12:19 98.5 126 26 165/97 (119) 98.5 EKG EKG [] Radiology/Procedures Radiology/Procedures [] Course & Med Decision Making Course & Med Decision Making Pertinent Labs and Imaging studies reviewed. (See chart for details) ED course: Patient was seen and examined in the emergency room 10 mg Decadron and a breathing treatment was ordered 1336: Patient was reevaluated in which she is feeling much better, auscultation of lungs shows increased air movement with minimal wheezing bilaterally. Patient is ready go home. Discussed with the patient about sending her home with albuterol inhaler and steroids. MDM: After reviewing the chart, CC/HPI/PMH, physical exam, I do not believe the patient has a severe respiratory infection warranting further workup and/or admission at this time. Since the patient has a history of asthma with no fever I do not believe a chest x-ray is indicated at this time. On reexamination the patient is breathing much better and ready go home. Patient is stable for discharge. Additional verbal discharge instructions were provided to the patient and that if symptoms get worse or any new symptoms arise that are worrisome to the patient she is to return to the emergency room immediately [] Dragon Disclaimer Dragon Disclaimer This electronic medical record was generated, in whole or in part, using a voice recognition dictation system. Departure Departure Impression: Primary Impression: Asthma exacerbation Disposition: 01 HOME, SELF-CARE Condition: IMPROVED Referrals: NO PCP (PCP) Patient Instructions: Asthma, Adult Additional Instructions: Please follow-up with your family physician in the next one to 2 days and return if symptoms increase Scripts Prednisone (PREDNISONE) 50 Mg Tablet 1 TAB PO DAILY, #5 TAB Prov: HARESH CAREY DO 05/29/17 Albuterol Sulfate (Ventolin Hfa) 8 Gm Hfa.aer.ad 1 GM IH PRN Q4-6HRS Y for WHEEZING for 30 Days, #1 INHALER Prov: HARESH CAREY DO 05/29/17 HARESH CAREY DO May 29, 2017 12:41
[2017-05-29] MEDS ORDERED: IPRATRPIUM/ALBUTEROL 0.5/2.5MG 3 ML NEBU. NEB ONE (12:45)
[2017-05-29] MEDS ORDERED: DEXAMETHASONE SOD PHOS 4 MG/ML VIAL IM ONE (12:45)
[2017-05-29] MEDS ORDERED: ALBU8HFA2 IH (13:42)
[2017-05-29] MEDS ORDERED: PRED50TA PO (13:42)
== END 2017-05-29 13:50 | disposition home or self-care (01) ==
LOC: ER 11:57
DX: J45.901 Unspecified asthma with (acute) exacerbation (principal); I10 Essential (primary) hypertension
CPT/HCPCS: 94250; 94640; 96372; 99283; J1100; J7620

== ENCOUNTER 2017-12-19 11:51 | Emergency (ER) | payer OTHER ==
[2017-12-19 12:12] LABS: URINE HCG POC HCG NEGATIVE (Negative)
[2017-12-19 12:41] LABS: ADD MAN DIFF? NO
[2017-12-19 12:46] LABS: BASO % 1 % (0-3); EOS # 0.3 x10^3/uL (0.0-0.7); EOS % 4 % (0-3); HEMATOCRIT 30.8 % (36.0-47.0); HEMOGLOBIN 9.2 g/dL (12.0-15.5); LYMPH # 2.6 x10^3/uL (1.0-4.8); LYMPH % 38 % (24-48); MEAN CORPUSCULAR HEMOGLOBIN 18 pg (25-35); MEAN CORPUSCULAR HGB CONC 30 g/dL (31-37); MEAN CORPUSCULAR VOLUME 62 fL (79-100); MONO # 0.3 x10^3/uL (0.0-1.1); MONO % 4 % (0-9); NEUT # 3.5 x10^3uL (1.8-7.7); NEUT % 53 % (31-73); PLATELET COUNT 616 x10^3/uL (140-400); RED BLOOD COUNT 5.01 x10^6/uL (3.50-5.40); RED CELL DISTRIBUTION WIDTH 20.5 % (11.5-14.5); WHITE BLOOD COUNT 6.7 x10^3/uL (4.0-11.0)
[2017-12-19 12:53] LABS: AMPHETAMINE/METHAMPHETAMINE NEG (NEG); BARBITURATES NEG (NEG); BENZODIAZEPINES NEG (NEG); CANNABINOIDS NEG (NEG); COCAINE NEG (NEG); ETHANOL, URINE NEG (NEG); METHADONE NEG (NEG); OPIATES NEG (NEG); PHENCYCLIDINE NEG (NEG)
[2017-12-19] MEDS: MORPHINE SULFATE 4 MG/ML DISP.SYRIN. IV/SQ (12:53)
[2017-12-19] MEDS: IV NORMAL SALINE 1000ML BAG 1,000 ML IV (12:54)
[2017-12-19 12:55] LABS: INR 1.2 (0.8-1.1); PROTHROMBIN TIME PATIENT 14.2 SEC (11.7-14.0)
[2017-12-19 12:57] LABS: BILIRUBIN,URINE NEGATIVE (NEG); CLARITY,URINE CLEAR; COLOR,URINE YELLOW; GLUCOSE,URINE NEGATIVE (NEG); NITRITE,URINE NEGATIVE (NEG); PROTEIN,URINE NEGATIVE (NEG-TRACE); UROBILINOGEN,URINE 0.2 mg/dL (0.2 mg/dL)
[2017-12-19 12:59] LABS: SQUAMOUS EPITHELIAL CELL,UR MANY /LPF
[2017-12-19 13:00] LABS: ANION GAP 7 (6-14); BACTERIA,URINE MANY /HPF (0-FEW); BLOOD UREA NITROGEN 7 mg/dL (7-20); CALCIUM 9.6 mg/dL (8.5-10.1); CARBON DIOXIDE 29 mmol/L (21-32); CHLORIDE 103 mmol/L (98-107); CREATININE 0.6 mg/dL (0.6-1.0); GFR 148.6; GLUCOSE 103 mg/dL (70-99); RBC,URINE OCC /HPF (0-2); SODIUM 139 mmol/L (136-145)
[2017-12-19 13:01] LABS: TRICHOMONAS,URINE PRESENT
[2017-12-19 13:06] LABS: ALBUMIN 3.6 g/dL (3.4-5.0); ALK PHOS 62 U/L (46-116); ALT (SGPT) 16 U/L (14-59); AST (SGOT) 15 U/L (15-37); DIRECT BILIRUBIN < 0.1 mg/dL (0.0-0.2); MAGNESIUM 1.9 mg/dL (1.8-2.4); TOTAL BILIRUBIN 0.4 mg/dL (0.2-1.0); TOTAL PROTEIN 8.1 g/dL (6.4-8.2)
[2017-12-19 13:13] LABS: THYROID STIM HORMONE (TSH) 1.955 uIU/mL (0.358-3.74)
[2017-12-19 13:13] LABS: CKMB INDEX 0.4 % (0-4); CKMB MASS 0.5 ng/mL (0.0-3.6); CREATINE KINASE 121 U/L (26-192)
[2017-12-19] MEDS: KETOROLAC 30 MG/ML INJ. IV (13:30)
[2017-12-19 14:54] LABS: ANISOCYTOSIS MOD; MICROCYTOSIS MOD; PLT ESTIMATE INCREASED (ADEQUATE)
[2017-12-19 14:55] LABS: HYPOCHROMIA MOD
[2017-12-19] MEDS: CIPROFLOXACIN HCL 250 MG TABLET. PO (15:11)
== END 2017-12-19 15:15 | disposition home or self-care (01) ==
LOC: ER 11:51
DX: R51 Headache (principal); N39.0 Urinary tract infection, site not specified; I10 Essential (primary) hypertension; J45.909 Unspecified asthma, uncomplicated
CPT/HCPCS: 36415; 70450; 80048; 80076; 80307; 81001; 81025; 82553; 83735; 84443; 85025; 85610; 87086; 96361; 96374; 96375; 99285-25; J1885; J2270; J7030

== ENCOUNTER 2018-11-29 19:51 | Inpatient (IN) | payer BC, OTHER ==
[~2018-11-29] VITALS: Ht 162.6 cm; Wt 102.2 kg
[~2018-11-29 19:51] MED LIST changes: +CIPR500T94 PO; -FERR140T2 PO; +FERR140T3 PO; -IPRA3AMP NEB; +IPRA3AMP29 NEB; +VENTOLIN HFA8 G1 IH
[2018-11-29] MEDS ORDERED: ALBUTEROL SULFATE 2.5 MG/3 ML NEBU. NEB ONE (20:45)
[2018-11-29] MEDS ORDERED: IPRATRPIUM/ALBUTEROL 0.5/2.5MG 3 ML NEBU. NEB ONE (20:45)
[2018-11-29 20:53] LABS: CALCIUM 9.2 mg/dL (8.5-10.1); CREATININE 0.6 mg/dL (0.6-1.0); GFR 147.4; POTASSIUM 4.4 mmol/L (3.5-5.1)
[2018-11-29 20:54] LABS: BASO % 1 % (0-3); EOS # 0.5 x10^3/uL (0.0-0.7); EOS % 6 % (0-3); HEMATOCRIT 30.6 % (36.0-47.0); LYMPH # 1.7 x10^3/uL (1.0-4.8); LYMPH % 19 % (24-48); MEAN CORPUSCULAR HEMOGLOBIN 18 pg (25-35); MEAN CORPUSCULAR HGB CONC 30 g/dL (31-37); MEAN CORPUSCULAR VOLUME 62 fL (79-100); MONO # 0.5 x10^3/uL (0.0-1.1); MONO % 6 % (0-9); NEUT # 6.1 x10^3uL (1.8-7.7); NEUT % 69 % (31-73); PLATELET COUNT 482 x10^3/uL (140-400); RED BLOOD COUNT 4.98 x10^6/uL (3.50-5.40); RED CELL DISTRIBUTION WIDTH 20.3 % (11.5-14.5)
[2018-11-29 21:00] LABS: ALBUMIN 3.6 g/dL (3.4-5.0); ALBUMIN/GLOBULIN RATIO 0.7 (1.0-1.7); TOTAL BILIRUBIN 0.5 mg/dL (0.2-1.0); TOTAL PROTEIN 8.6 g/dL (6.4-8.2)
[2018-11-29] MEDS ORDERED: DEXAMETHASONE SOD PHOS 20 MG/5 ML VIAL. IV ONE (21:00)
--- NOTE | 2018-11-29 21:19 | RAD ---
EXAM: Chest, 2 views HISTORY: Cough. COMPARISON: 02/24/2017 FINDINGS: 2 views the chest are obtained. There is no infiltrate, pleural effusion or pneumothorax. The heart is normal in size. There is increased opacity overlying the lower thorax due to overlying soft tissues. IMPRESSION: No acute pulmonary finding. Electronically signed by: Tammy Galeas MD (11/29/2018 9:16 PM) [facility]
[2018-11-29 21:20] LABS: HYPOCHROMIA MOD; MICROCYTOSIS MOD; PLT ESTIMATE INCREASED (ADEQUATE); POLYCHROMASIA SLIGHT; SPHEROCYTES OCC
[2018-11-29 21:21] LABS: OVALOCYTES OCC; TARGET CELLS OCC
[2018-11-29 21:22] LABS: SCHISTOCYTES OCC
[2018-11-29 22:29] LABS: INFLUENZA A PATIENT NEGATIVE (NEGATIVE); INFLUENZA B PATIENT NEGATIVE (NEGATIVE)
[2018-11-29] MEDS ORDERED: ALBUTEROL SULFATE 2.5 MG/3 ML NEBU. NEB PRN (22:30)
--- NOTE | 2018-11-29 22:35 | PHYS DOC ---
Past Medical History Past Medical History: Asthma, Hypertension Additional Past Medical Histor: URI (HARITHA HERNANDEZ APRN) Past Surgical History: No Surgical History (HARITHA HERNANDEZ APRN) Alcohol Use: Rarely Drug Use: None (HARITHA HERNANDEZ APRN) Adult General Chief Complaint Chief Complaint: CHEST WALL PAIN HPI HPI Patient is a 23 year old female who presents to the ER with complaints of shortness of breath since early this morning. Pt reports that she has a history of asthma and she is out of her albuterol. Her last asthma flare up was about 3 months ago. Pt smokes less than half a pack of cigarettes a day. She denies any cold sx including a fever, sneezing, sore throat, ear pain, headache, or body aches. She states that today she has had a dry cough with her asthma symptoms. She reports chest tightness at this time. (HARITHA HERNANDEZ APRN) Review of Systems Review of Systems Constitutional: Denies fever or chills [] Eyes: Denies any changes HENT: Denies nasal congestion or sore throat [] Respiratory: see HPI Cardiovascular: No additional information not addressed in HPI [] GI: Denies abdominal pain, nausea, vomiting, or diarrhea [] Musculoskeletal: Denies back pain or joint pain [] Integument: Denies rash or skin lesions [] Neurologic: Denies headache, focal weakness or sensory changes [] (HARITHA HERNANDEZ APRN) Current Medications Current Medications Current Medications Medications (Trade) Dose Ordered Sig/Harjeet Start Time Stop Time Status Last Admin Dose Admin Albuterol Sulfate (Ventolin Neb Soln) 2.5 mg PRN Q4HRS PRN 11/29/18 22:30 12/01/18 15:46 DC Albuterol/ Ipratropium (Duoneb) 3 ml 1X ONCE 11/29/18 20:45 11/29/18 20:46 DC 11/29/18 20:32 3 ML Dexamethasone Sodium Phosphate (Decadron) 10 mg 1X ONCE 11/29/18 21:00 11/29/18 21:01 DC 11/29/18 21:21 10 MG (FUNMILAYO CUI MD) Allergies Allergies Allergies Coded Allergies Type Severity Reaction Last Updated Verified No Known Drug Allergies 05/30/14 No (FUNMILAYO CUI MD) Physical Exam Physical Exam Constitutional: Well developed, well nourished, no acute distress, non-toxic appearance. [] HENT: Normocephalic, atraumatic, bilateral external ears normal, oropharynx moist, no oral exudates, nose normal. [] Eyes: PERRLA, conjunctiva normal, no discharge. [] Neck: Normal range of motion, no stridor. [] Cardiovascular:Heart rate regular rhythm, no murmur [] Lungs & Thorax: Bilateral breath sounds diffuse inspiratory and expiratory wheezing diminished in bases bilat, pt speaking 2-3 words at a time, mild intercostal retractions Skin: Warm, dry, no erythema, no rash, cap refill < 2 seconds Extremities: No tenderness, no cyanosis, no clubbing, ROM intact, no edema. [] Neurologic: Alert and oriented X 3, normal motor function, normal sensory function, no focal deficits noted. [] Psychologic: Affect normal, judgement normal, mood normal. [] (HARITHA HERNANDEZ APRN) Current Patient Data Vital Signs Vital Signs Date Time Temp Pulse Resp B/P (MAP) Pulse Ox O2 Delivery O2 Flow Rate FiO2 11/30/18 00:05 92 20 109/67 (81) 98 Nasal Cannula 2.0 11/29/18 20:07 98.4 98.4 (FUNMILAYO CUI MD) Lab Values Laboratory Tests Test 11/29/18 20:30 11/29/18 21:52 White Blood Count 8.8 x10^3/uL (4.0-11.0) Red Blood Count 4.98 x10^6/uL (3.50-5.40) Hemoglobin 9.0 g/dL (12.0-15.5) L Hematocrit 30.6 % (36.0-47.0) L Mean Corpuscular Volume 62 fL (79-100) L Mean Corpuscular Hemoglobin 18 pg (25-35) L Mean Corpuscular Hemoglobin Concent 30 g/dL (31-37) L Red Cell Distribution Width 20.3 % (11.5-14.5) H Platelet Count 482 x10^3/uL (140-400) H Neutrophils (%) (Auto) 69 % (31-73) Lymphocytes (%) (Auto) 19 % (24-48) L Monocytes (%) (Auto) 6 % (0-9) Eosinophils (%) (Auto) 6 % (0-3) H Basophils (%) (Auto) 1 % (0-3) Neutrophils # (Auto) 6.1 x10^3uL (1.8-7.7) Lymphocytes # (Auto) 1.7 x10^3/uL (1.0-4.8) Monocytes # (Auto) 0.5 x10^3/uL (0.0-1.1) Eosinophils # (Auto) 0.5 x10^3/uL (0.0-0.7) Basophils # (Auto) 0.0 x10^3/uL (0.0-0.2) Platelet Estimate Increased (ADEQUATE) Polychromasia Slight Hypochromasia Mod Microcytosis Mod Macrocytosis Slight Spherocytes Occ Target Cells Occ Ovalocytes Occ Schistocytes Occ Sodium Level 141 mmol/L (136-145) Potassium Level 4.4 mmol/L (3.5-5.1) Chloride Level 101 mmol/L (98-107) Carbon Dioxide Level 29 mmol/L (21-32) Anion Gap 11 (6-14) Blood Urea Nitrogen 7 mg/dL (7-20) Creatinine 0.6 mg/dL (0.6-1.0) Estimated GFR (Cockcroft-Gault) 147.4 BUN/Creatinine Ratio 12 (6-20) Glucose Level 103 mg/dL (70-99) H Calcium Level 9.2 mg/dL (8.5-10.1) Total Bilirubin 0.5 mg/dL (0.2-1.0) Aspartate Amino Transferase (AST) 47 U/L (15-37) H Alanine Aminotransferase (ALT) 17 U/L (14-59) Alkaline Phosphatase 70 U/L (46-116) Troponin I Quantitative < 0.017 ng/mL (0.000-0.055) Total Protein 8.6 g/dL (6.4-8.2) H Albumin 3.6 g/dL (3.4-5.0) Albumin/Globulin Ratio 0.7 (1.0-1.7) L Influenza Type A Antigen Negative (NEGATIVE) Influenza Type B Antigen Negative (NEGATIVE) Laboratory Tests 11/29/18 20:30 Laboratory Tests 11/29/18 20:30 (FUNMILAYO CUI MD) EKG EKG 2014- sinus tachycardia, no stemi, rate [address] Cui[] (HARITHA HERNANDEZ APRN) Radiology/Procedures Radiology/Procedures PROCEDURE: CHEST PA & LATERAL EXAM: Chest, 2 views HISTORY: Cough. COMPARISON: 02/24/2017 FINDINGS: 2 views the chest are obtained. There is no infiltrate, pleural effusion or pneumothorax. The heart is normal in size. There is increased opacity overlying the lower thorax due to overlying soft tissues. IMPRESSION: No acute pulmonary finding.[] (HARITHA HERNANDEZ APRN) Course & Med Decision Making Course & Med Decision Making Pertinent Labs and Imaging studies reviewed. (See chart for details) Dx: acute asthma exacerbation Pt was given a duoneb and albuterol neb tx in the ER, as well as 10 mg of IM decadron. Pt's O2 sat dropped to 88% on RA even after breathing treatments, expiratory wheezing remains in posterior waller. O2/nc at 2L increased O2 sat to 94%. CXR negative for any acute findings. Influenza testing negative. troponin negative, CBC unremarkable. Spoke with Dr. Hassan who will admit patient for acute asthma exacerbation. [] (HARITHA HERNANDEZ APRN) Course & Med Decision Making Staff Physician Addendum: I was working in the ER during the course of this patient's visit. I was available for consultation as needed, but I was not directly involved in the care of this patient. (FUNMILAYO CUI MD) Dragon Disclaimer Dragon Disclaimer This electronic medical record was generated, in whole or in part, using a voice recognition dictation system. (HARITHA HERNANDEZ APRN) Departure Departure Impression: Primary Impression: Asthma exacerbation Additional Impressions: Hypoxemia Anemia Disposition: ADMITTED INPATIENT Admitting Physician: Maria Antonia Hassan (HARITHA HERNANDEZ APRN) Condition: STABLE Referrals: NO PCP (PCP) Scripts Albuterol Sulfate (PROVENTIL HFA INHALER) 6.7 Gm Hfa.aer.ad 1 PUFF IH PRN Q4HRS PRN for FOR ASTHMA for 30 Days, #3 INHALER 0 Refills Prov: SUSAN MEJÍA MD 12/01/18 Prednisone (PREDNISONE) 50 Mg Tablet 1 TAB PO DAILY for bronchospasm for 3 Days, #3 TAB Prov: SUSAN MEJÍA MD 12/01/18 Ipratropium/Albuterol Sulfate (DUONEB 0.5-3(2.5) MG/3 ML) 3 Ml Ampul.neb 3 ML NEB QID for bronchospasm for 30 Days, #120 EACH Prov: SUSAN MEJÍA MD 12/01/18 Problem Qualifiers Primary Impression: Asthma exacerbation Asthma severity: moderate Asthma persistence: persistent Qualified Codes: J45.41 - Moderate persistent asthma with (acute) exacerbation Additional Impressions: Anemia Anemia type: iron deficiency Iron deficiency anemia type: unspecified iron deficiency Qualified Codes: D50.9 - Iron deficiency anemia, unspecified HARITHA HERNANDEZ APRN Nov 29, 2018 22:35 FUNMILAYO CUI MD Dec 04, 2018 08:27
[2018-11-30] VITALS (7 sets, daily range): BP systolic 119–139; BP diastolic 70–78
--- NOTE | 2018-11-30 00:40 | NUR ---
The patient, IZABEL HILTON, 23 y/o, F admitted by MARK NEAL III, DO, was given written information regarding hospital policies, unit procedures and contact persons. Patient arrived to this room at approximately 0035 by ED staff via wheelchair, no family present at bedside at this time. Valuables were checked and noted. The patient is sitting in bed at this time, states no pain or discomfort at this time.The patient stated no needs at this time. This RN will continue to monitor the patient at this time.
[2018-11-30] MEDS: IPRATRPIUM/ALBUTEROL 0.5/2.5MG 3 ML NEBU. NEB SCH ×4 (07:01→20:41)
--- NOTE | 2018-11-30 07:09 | EKG ---
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
--- NOTE | 2018-11-30 11:37 | NUR ---
SW following for discharge planning. Discussed with RN, RN advised no SW needs at this time. Pt is independent. SW will continue to follow.
[2018-11-30 12:27] LABS: WHITE BLOOD COUNT 8.8 x10^3/uL (4.0-11.0)
--- NOTE | 2018-11-30 13:41 | CONS ---
DATE OF CONSULTATION: 11/30/2018 ATTENDING PHYSICIAN: Dr. Hassan. REASON FOR CONSULTATION: Asthma exacerbation. HISTORY OF PRESENT ILLNESS: The patient is a 23-year-old who was diagnosed with asthma as a child, she never outgrew it. The patient states that the asthma is relatively under control and flares up once or twice a year. She only takes albuterol inhaler. This time she was brought into the hospital with increased shortness of breath and some wheezing. She said she did not have any significant cough. She felt febrile yesterday. The patient has been afebrile since in the hospital. Her chest x-ray was clear. She had no major hospitalizations from asthma. PAST MEDICAL HISTORY: Significant for asthma and hypertension. PAST SURGICAL HISTORY: No surgeries. ALLERGIES: None. CURRENT MEDICATIONS: Reviewed as listed in the MRAD. REVIEW OF SYSTEMS: Twelve-point systems obtained. Pertinent positives discussed in my history of present illness, otherwise noncontributory. All systems that were negative were reviewed as well. SOCIAL HISTORY: Denies tobacco use. PHYSICAL EXAMINATION: VITAL SIGNS: Stable. NECK: Supple. LUNGS: With bilateral expiratory wheezes. CARDIOVASCULAR: Regular rate. ABDOMEN: Soft. EXTREMITIES: With no pitting edema. LABORATORY DATA: Reviewed. White cell count 8.8, hemoglobin 9.0. Influenza screen negative. BUN and creatinine normal. IMPRESSION: 1. Dyspnea secondary to acute asthma exacerbation in a patient who has a history of asthma as a child and never outgrew it, but asthma has been relatively stable with flareups only once or twice a year. 2. Acute hypoxic respiratory failure secondary to acute asthma exacerbation. 3. No symptoms suggesting pneumonia. Chest x-ray clear. RECOMMENDATIONS: 1. Continue with DuoNeb. 2. The patient would benefit from outpatient steroid inhaler during the wintertime as the weather probably has triggered her exacerbation during this hospitalization. 3. Possible discharge in the next 24 hours. 4. Add oral prednisone. CHARLI BRUNER MD DR: JORY/nts JOB#: [id number] / [id number]
--- NOTE | 2018-11-30 13:46 | PDOC1 ---
History and Physical Date of Admission Date of Admission 11/30/2018 Identification/Chief Complaint Chief Complaint I couldn't breathe Source Source: Patient History of Present Illness History of Present Illness Patient is a 23-year-old female with history of mild intermittent asthma who is also an active smoker of about 5-6 cigarettes a day yesterday started complaining of shortness of breath early in the day. The patient denies any recent cold-like symptoms, no sneezing coughing sick contacts were reported. Patient unfortunately ran out of her inhaler and was not able to administer bronchodilators at home reason why she came to the emergency department for further evaluation and treatment. The patient at the present time is feeling much better, no increased work of breathing no accessory muscle use is seen she is able to speak in full sentences. The patient has not been intubated for severe respiratory distress in the past and stated before the patient barely has 2-3 episodes a year of bronchospasm. Patient will be admitted for further treatment Past Medical History Pulmonary: Asthma Current Problem List Problem List Problems Medical Problems: (1) Anemia Status: Acute (2) Asthma exacerbation Status: Acute (3) Hypoxemia Status: Acute Current Medications Current Medications Current Medications Medications (Trade) Dose Ordered Sig/Harjeet Start Time Stop Time Status Last Admin Dose Admin Albuterol Sulfate (Ventolin Neb Soln) 2.5 mg PRN Q4HRS PRN 11/29/18 22:30 Albuterol/ Ipratropium (Duoneb) 3 ml RTQID 11/30/18 08:00 12/01/18 07:59 11/30/18 11:10 3 ML Budesonide (Pulmicort) 0.5 mg RTBID 11/30/18 20:00 UNV Dexamethasone Sodium Phosphate (Decadron) 10 mg 1X ONCE 11/29/18 21:00 11/29/18 21:01 DC 11/29/18 21:21 10 MG Prednisone (Prednisone) 40 mg DAILY 11/30/18 14:00 UNV Allergies Allergies Allergies Coded Allergies Type Severity Reaction Last Updated Verified No Known Drug Allergies 05/30/14 No ROS Review of System CONSTITUTIONAL: No fever or chills EYES: No recent changes SKIN: No rash or itching CARDIOVASCULAR: No chest pain, syncope, palpitations, or edema RESPIRATORY: No SOB or cough GASTROINTESTINAL: No nausea, vomiting or abdominal pain NEUROLOGICAL: No headaches or weakness ENDOCRINE: No cold or heat intolerance GENITOURINARY: No urgency or frequency of urination MUSCULOSKELETAL: No back pain or joint pain LYMPHATICS: No enlarged lymph nodes PSYCHIATRIC: No anxiety or depression Physical Exam Physical Exam GEN.: No apparent distress. Alert and oriented. HEENT: Head is normocephalic, atraumatic NECK: Supple. LUNGS: Clear to auscultation. HEART: RRR, S1, S2 present. Peripheral pulses intact ABDOMEN: Soft, nontender. Positive bowel sounds. EXTREMITIES: Without any cyanosis. NEUROLOGIC: Normal speech, normal tone PSYCHIATRIC: Normal affect, normal mood. SKIN: No ulcerations Vitals Vitals Vital Signs Date Time Temp Pulse Resp B/P (MAP) Pulse Ox O2 Delivery O2 Flow Rate FiO2 11/30/18 11:10 95 Room Air 11/30/18 11:00 97.7 101 18 139/78 (98) 97.7 11/30/18 07:55 1.0 Labs Labs Laboratory Tests Test 11/29/18 20:30 11/29/18 21:52 White Blood Count 8.8 x10^3/uL (4.0-11.0) Red Blood Count 4.98 x10^6/uL (3.50-5.40) Hemoglobin 9.0 g/dL (12.0-15.5) Hematocrit 30.6 % (36.0-47.0) Mean Corpuscular Volume 62 fL (79-100) Mean Corpuscular Hemoglobin 18 pg (25-35) Mean Corpuscular Hemoglobin Concent 30 g/dL (31-37) Red Cell Distribution Width 20.3 % (11.5-14.5) Platelet Count 482 x10^3/uL (140-400) Neutrophils (%) (Auto) 69 % (31-73) Lymphocytes (%) (Auto) 19 % (24-48) Monocytes (%) (Auto) 6 % (0-9) Eosinophils (%) (Auto) 6 % (0-3) Basophils (%) (Auto) 1 % (0-3) Neutrophils # (Auto) 6.1 x10^3uL (1.8-7.7) Lymphocytes # (Auto) 1.7 x10^3/uL (1.0-4.8) Monocytes # (Auto) 0.5 x10^3/uL (0.0-1.1) Eosinophils # (Auto) 0.5 x10^3/uL (0.0-0.7) Basophils # (Auto) 0.0 x10^3/uL (0.0-0.2) Platelet Estimate Increased (ADEQUATE) Polychromasia Slight Hypochromasia Mod Microcytosis Mod Macrocytosis Slight Spherocytes Occ Target Cells Occ Ovalocytes Occ Schistocytes Occ Sodium Level 141 mmol/L (136-145) Potassium Level 4.4 mmol/L (3.5-5.1) Chloride Level 101 mmol/L (98-107) Carbon Dioxide Level 29 mmol/L (21-32) Anion Gap 11 (6-14) Blood Urea Nitrogen 7 mg/dL (7-20) Creatinine 0.6 mg/dL (0.6-1.0) Estimated GFR (Cockcroft-Gault) 147.4 BUN/Creatinine Ratio 12 (6-20) Glucose Level 103 mg/dL (70-99) Calcium Level 9.2 mg/dL (8.5-10.1) Total Bilirubin 0.5 mg/dL (0.2-1.0) Aspartate Amino Transf (AST/SGOT) 47 U/L (15-37) Alanine Aminotransferase (ALT/SGPT) 17 U/L (14-59) Alkaline Phosphatase 70 U/L (46-116) Troponin I Quantitative < 0.017 ng/mL (0.000-0.055) Total Protein 8.6 g/dL (6.4-8.2) Albumin 3.6 g/dL (3.4-5.0) Albumin/Globulin Ratio 0.7 (1.0-1.7) Influenza Type A Antigen Negative (NEGATIVE) Influenza Type B Antigen Negative (NEGATIVE) Laboratory Tests Test 11/29/18 20:30 11/29/18 21:52 White Blood Count 8.8 x10^3/uL (4.0-11.0) Red Blood Count 4.98 x10^6/uL (3.50-5.40) Hemoglobin 9.0 g/dL (12.0-15.5) Hematocrit 30.6 % (36.0-47.0) Mean Corpuscular Volume 62 fL (79-100) Mean Corpuscular Hemoglobin 18 pg (25-35) Mean Corpuscular Hemoglobin Concent 30 g/dL (31-37) Red Cell Distribution Width 20.3 % (11.5-14.5) Platelet Count 482 x10^3/uL (140-400) Neutrophils (%) (Auto) 69 % (31-73) Lymphocytes (%) (Auto) 19 % (24-48) Monocytes (%) (Auto) 6 % (0-9) Eosinophils (%) (Auto) 6 % (0-3) Basophils (%) (Auto) 1 % (0-3) Neutrophils # (Auto) 6.1 x10^3uL (1.8-7.7) Lymphocytes # (Auto) 1.7 x10^3/uL (1.0-4.8) Monocytes # (Auto) 0.5 x10^3/uL (0.0-1.1) Eosinophils # (Auto) 0.5 x10^3/uL (0.0-0.7) Basophils # (Auto) 0.0 x10^3/uL (0.0-0.2) Platelet Estimate Increased (ADEQUATE) Polychromasia Slight Hypochromasia Mod Microcytosis Mod Macrocytosis Slight Spherocytes Occ Target Cells Occ Ovalocytes Occ Schistocytes Occ Sodium Level 141 mmol/L (136-145) Potassium Level 4.4 mmol/L (3.5-5.1) Chloride Level 101 mmol/L (98-107) Carbon Dioxide Level 29 mmol/L (21-32) Anion Gap 11 (6-14) Blood Urea Nitrogen 7 mg/dL (7-20) Creatinine 0.6 mg/dL (0.6-1.0) Estimated GFR (Cockcroft-Gault) 147.4 BUN/Creatinine Ratio 12 (6-20) Glucose Level 103 mg/dL (70-99) Calcium Level 9.2 mg/dL (8.5-10.1) Total Bilirubin 0.5 mg/dL (0.2-1.0) Aspartate Amino Transf (AST/SGOT) 47 U/L (15-37) Alanine Aminotransferase (ALT/SGPT) 17 U/L (14-59) Alkaline Phosphatase 70 U/L (46-116) Troponin I Quantitative < 0.017 ng/mL (0.000-0.055) Total Protein 8.6 g/dL (6.4-8.2) Albumin 3.6 g/dL (3.4-5.0) Albumin/Globulin Ratio 0.7 (1.0-1.7) Influenza Type A Antigen Negative (NEGATIVE) Influenza Type B Antigen Negative (NEGATIVE) VTE Prophylaxis Ordered VTE Prophylaxis Devices: Yes VTE Pharmacological Prophylaxi: No Assessment/Plan Assessment/Plan acute asthma exacerbation tobacco abuse tobacco cessation counseling done less than 10 minutes obesity with a BMI of 38 Plan: continue nebulization therapy reassess later in the day if she continues to do well may be discharged later all concerns addressed to the best of my abilities. SUSAN MEJÍA MD Nov 30, 2018 13:46
[2018-11-30] MEDS: predniSONE 20 MG TABLET PO SCH (14:59)
[2018-11-30] MEDS: BUDESONIDE 0.5 MG/2 ML NEBU. NEB SCH (20:41)
[2018-12-01 03:00] VITALS: BP 121/67
[2018-12-01 07:00] VITALS: BP_SYST 125; BP_SYST 130; BP_DIAS 70; BP_DIAS 80
[2018-12-01] MEDS: IPRATRPIUM/ALBUTEROL 0.5/2.5MG 3 ML NEBU. NEB SCH (07:30)
[2018-12-01] MEDS: BUDESONIDE 0.5 MG/2 ML NEBU. NEB SCH (07:30)
[2018-12-01] MEDS: predniSONE 20 MG TABLET PO SCH (09:48)
[2018-12-01 11:00] VITALS: BP 116/74
--- NOTE | 2018-12-01 12:47 | PDOC ---
PULMONARY PROGRESS NOTES Subjective feels better, wants to go home Vitals Vital Signs Date Time Temp Pulse Resp B/P (MAP) Pulse Ox O2 Delivery O2 Flow Rate FiO2 12/01/18 11:00 97.9 116/74 (88) 97.9 12/01/18 07:30 98 Room Air 12/01/18 07:00 93 18 11/30/18 07:55 1.0 General: Alert, No acute distress Lungs: Wheezing (faint) Cardiovascular: S1 Abdomen: Soft Neuro Exam: Alert Extremities: No Edema Skin: Warm Labs Laboratory Tests Test 11/29/18 20:30 11/29/18 21:52 White Blood Count 8.8 x10^3/uL (4.0-11.0) Red Blood Count 4.98 x10^6/uL (3.50-5.40) Hemoglobin 9.0 g/dL (12.0-15.5) Hematocrit 30.6 % (36.0-47.0) Mean Corpuscular Volume 62 fL (79-100) Mean Corpuscular Hemoglobin 18 pg (25-35) Mean Corpuscular Hemoglobin Concent 30 g/dL (31-37) Red Cell Distribution Width 20.3 % (11.5-14.5) Platelet Count 482 x10^3/uL (140-400) Neutrophils (%) (Auto) 69 % (31-73) Lymphocytes (%) (Auto) 19 % (24-48) Monocytes (%) (Auto) 6 % (0-9) Eosinophils (%) (Auto) 6 % (0-3) Basophils (%) (Auto) 1 % (0-3) Neutrophils # (Auto) 6.1 x10^3uL (1.8-7.7) Lymphocytes # (Auto) 1.7 x10^3/uL (1.0-4.8) Monocytes # (Auto) 0.5 x10^3/uL (0.0-1.1) Eosinophils # (Auto) 0.5 x10^3/uL (0.0-0.7) Basophils # (Auto) 0.0 x10^3/uL (0.0-0.2) Platelet Estimate Increased (ADEQUATE) Polychromasia Slight Hypochromasia Mod Microcytosis Mod Macrocytosis Slight Spherocytes Occ Target Cells Occ Ovalocytes Occ Schistocytes Occ Sodium Level 141 mmol/L (136-145) Potassium Level 4.4 mmol/L (3.5-5.1) Chloride Level 101 mmol/L (98-107) Carbon Dioxide Level 29 mmol/L (21-32) Anion Gap 11 (6-14) Blood Urea Nitrogen 7 mg/dL (7-20) Creatinine 0.6 mg/dL (0.6-1.0) Estimated GFR (Cockcroft-Gault) 147.4 BUN/Creatinine Ratio 12 (6-20) Glucose Level 103 mg/dL (70-99) Calcium Level 9.2 mg/dL (8.5-10.1) Total Bilirubin 0.5 mg/dL (0.2-1.0) Aspartate Amino Transf (AST/SGOT) 47 U/L (15-37) Alanine Aminotransferase (ALT/SGPT) 17 U/L (14-59) Alkaline Phosphatase 70 U/L (46-116) Troponin I Quantitative < 0.017 ng/mL (0.000-0.055) Total Protein 8.6 g/dL (6.4-8.2) Albumin 3.6 g/dL (3.4-5.0) Albumin/Globulin Ratio 0.7 (1.0-1.7) Influenza Type A Antigen Negative (NEGATIVE) Influenza Type B Antigen Negative (NEGATIVE) Medications Active Scripts Medications Dose Route/Sig Max Daily Dose Days Date Category Dose Instructions Cipro (Ciprofloxacin Hcl) 500 Mg Tablet 500 Mg PO BID 3 12/19/17 Rx Prednisone 50 Mg Tablet 1 Tab PO DAILY 05/29/17 Rx Ventolin Hfa (Albuterol Sulfate) 8 Gm Hfa.aer.ad 1 Gm IH PRN Q4-6HRS PRN 30 05/29/17 Rx Duoneb 0.5-3(2.5) Mg/3 Ml (Albuterol/Ipratropium) 3 Ml Ampul.neb 3 Ml NEB QID 05/22/17 Rx Prednisone 20 Mg Tablet 20 Mg PO DAILY 7 05/22/17 Rx Ferrous Sulfate 140 Mg Tablet.er 140 Mg PO DAILY 11/19/16 Rx Prednisone 50 Mg Tablet 1 Tab PO DAILY 11/19/16 Rx start taking 11/20/16 Proventil Hfa (Albuterol Sulfate) 6.7 Gm Hfa.aer.ad 6.7 Gm IH Q4HRS PRN 11/19/16 Rx Impression . 1. Dyspnea secondary to acute asthma exacerbation in a patient who has a history of asthma as a child and never outgrew it, but asthma has been relatively stable with flareups only once or twice a year. 2. Acute hypoxic respiratory failure secondary to acute asthma exacerbation. 3. No symptoms suggesting pneumonia. Chest x-ray clear. Plan . 1. Continue with DuoNeb. 2. The patient would benefit from outpatient steroid inhaler during the wintertime as the weather probably has triggered her exacerbation during this hospitalization. I gave her flovent prescription 3. Possible discharge today with PO Steroid taper CHARLI BRUNER MD Dec 01, 2018 12:47
[2018-12-01] MEDS ORDERED: IPRA3AMP29 NEB (13:08)
[2018-12-01] MEDS ORDERED: ALBU2.5V8 IH (13:08)
[2018-12-01] MEDS ORDERED: PRED50TA PO (13:08)
--- NOTE | 2018-12-01 13:54 | PDOC3 ---
Discharge Summary Visit Information Date of Admission: Nov 30, 2018 Date of Discharge: Dec 01, 2018 Admitting Diagnosis: Acute asthma exacerbation Final Diagnosis Problems Medical Problems: (1) Anemia Status: Acute (2) Asthma exacerbation Status: Acute (3) Hypoxemia Status: Acute Brief Hospital Course Allergies Allergies Coded Allergies Type Severity Reaction Last Updated Verified No Known Drug Allergies 05/30/14 No Vital Signs Vital Signs Date Time Temp Pulse Resp B/P (MAP) Pulse Ox O2 Delivery O2 Flow Rate FiO2 12/01/18 11:00 97.9 116/74 (88) 97.9 12/01/18 07:30 98 Room Air 12/01/18 07:00 93 18 11/30/18 07:55 1.0 Lab Results Laboratory Tests Test 11/29/18 20:30 11/29/18 21:52 White Blood Count 8.8 x10^3/uL (4.0-11.0) Red Blood Count 4.98 x10^6/uL (3.50-5.40) Hemoglobin 9.0 g/dL (12.0-15.5) Hematocrit 30.6 % (36.0-47.0) Mean Corpuscular Volume 62 fL (79-100) Mean Corpuscular Hemoglobin 18 pg (25-35) Mean Corpuscular Hemoglobin Concent 30 g/dL (31-37) Red Cell Distribution Width 20.3 % (11.5-14.5) Platelet Count 482 x10^3/uL (140-400) Neutrophils (%) (Auto) 69 % (31-73) Lymphocytes (%) (Auto) 19 % (24-48) Monocytes (%) (Auto) 6 % (0-9) Eosinophils (%) (Auto) 6 % (0-3) Basophils (%) (Auto) 1 % (0-3) Neutrophils # (Auto) 6.1 x10^3uL (1.8-7.7) Lymphocytes # (Auto) 1.7 x10^3/uL (1.0-4.8) Monocytes # (Auto) 0.5 x10^3/uL (0.0-1.1) Eosinophils # (Auto) 0.5 x10^3/uL (0.0-0.7) Basophils # (Auto) 0.0 x10^3/uL (0.0-0.2) Platelet Estimate Increased (ADEQUATE) Polychromasia Slight Hypochromasia Mod Microcytosis Mod Macrocytosis Slight Spherocytes Occ Target Cells Occ Ovalocytes Occ Schistocytes Occ Sodium Level 141 mmol/L (136-145) Potassium Level 4.4 mmol/L (3.5-5.1) Chloride Level 101 mmol/L (98-107) Carbon Dioxide Level 29 mmol/L (21-32) Anion Gap 11 (6-14) Blood Urea Nitrogen 7 mg/dL (7-20) Creatinine 0.6 mg/dL (0.6-1.0) Estimated GFR (Cockcroft-Gault) 147.4 BUN/Creatinine Ratio 12 (6-20) Glucose Level 103 mg/dL (70-99) Calcium Level 9.2 mg/dL (8.5-10.1) Total Bilirubin 0.5 mg/dL (0.2-1.0) Aspartate Amino Transf (AST/SGOT) 47 U/L (15-37) Alanine Aminotransferase (ALT/SGPT) 17 U/L (14-59) Alkaline Phosphatase 70 U/L (46-116) Troponin I Quantitative < 0.017 ng/mL (0.000-0.055) Total Protein 8.6 g/dL (6.4-8.2) Albumin 3.6 g/dL (3.4-5.0) Albumin/Globulin Ratio 0.7 (1.0-1.7) Influenza Type A Antigen Negative (NEGATIVE) Influenza Type B Antigen Negative (NEGATIVE) Brief Hospital Course Patient is a 23-year-old female with history of mild intermittent asthma who is also an active smoker of about 5-6 cigarettes a day yesterday started complaining of shortness of breath early in the day. The patient denies any recent cold-like symptoms, no sneezing coughing sick contacts were reported. Patient unfortunately ran out of her inhaler and was not able to administer bronchodilators at home reason why she came to the emergency department for further evaluation and treatment. The patient at the present time is feeling much better, no increased work of breathing no accessory muscle use is seen she is able to speak in full sentences. The patient has not been intubated for severe respiratory distress in the past and stated before the patient barely has 2-3 episodes a year of bronchospasm. Patient's in consultation by pulmonology while she was inpatient. She had resolution of her symptoms quite weekly, the patient's symptoms seem to be triggered by the winter weather. Unfortunately she only has 2-3 attacks per year, the patient is in good spirits to be dismissed home recommendations from hospice consultant were 2 continue with steroids by mouth once she is discharged I have provided her with prescriptions for her inhalers as well. She is in good spirits to be dismissed home concerns were addressed to the best of my abilities Physical exam: Lungs clear to auscultation with good inspiratory effort Cardiovascular exam S1-S2 regular rhythm no murmurs or rubs Discharge Information Scheduled Ciprofloxacin Hcl (Cipro) 500 Mg Tablet, 500 MG PO BID for 3 Days, #6 Ref 0 Prescribed by: SALVADOR CASAS on 12/19/17 1500 Ferrous Sulfate (Ferrous Sulfate) 140 Mg Tablet.er, 140 MG PO DAILY, #30 Prescribed by: RYDER RING MD on 11/19/16 1714 Ipratropium/Albuterol Sulfate (Duoneb 0.5-3(2.5) Mg/3 Ml) 3 Ml Ampul.neb, 3 ML NEB QID for bronchospasm for 30 Days, #120 Prescribed by: SUSAN MEJÍA MD on 12/01/18 1308 Prednisone (Prednisone) 50 Mg Tablet, 1 TAB PO DAILY for bronchospasm for 3 Days , #3 Prescribed by: SUSAN MEJÍA MD on 12/01/18 1308 Scheduled PRN Albuterol Sulfate (Ventolin Hfa) 8 Gm Hfa.aer.ad, 1 GM IH PRN Q4-6HRS PRN for WHEEZING for 30 Days, #1 Prescribed by: HARESH CAREY D.O. on 05/29/17 1342 Albuterol Sulfate (Proventil Hfa Inhaler) 6.7 Gm Hfa.aer.ad, 1 PUFF IH PRN Q4HRS PRN for FOR ASTHMA for 30 Days, #3 Ref 0 Prescribed by: SUSAN MEJÍA MD on 12/01/18 1308 Discontinued Medications Albuterol Sulfate (Proventil Hfa) 6.7 Gm Hfa.aer.ad, 6.7 GM IH Q4HRS PRN for WHEEZING, #1 Ref 1 Prescribed by: RYDER RING MD on 11/19/16 1714 Prednisone (Prednisone) 50 Mg Tablet, 1 TAB PO DAILY, #4 start taking 11/20/16 Prescribed by: RYDER RING MD on 11/19/16 1714 Prednisone (Prednisone) 20 Mg Tablet, 20 MG PO DAILY for 7 Days, #7 Prescribed by: LUISA GUTIERREZ APRN on 05/22/17 1543 SUSAN MEJÍA MD Dec 01, 2018 13:54
--- NOTE | 2018-12-01 14:23 | NUR ---
SW following. Discussed with RN and Dr. Nobles. No SW needs, anticipate pt will discharge home with self care today.
[2018-12-20] MEDS ORDERED: AMOX500C PO (08:14)
[2018-12-20] MEDS ORDERED: DICL50TA4 PO (08:14)
== END 2018-12-01 15:05 | disposition home or self-care (01) | DRG 189 ==
LOC: ER 19:51 → 5 SOUTH 11-30 00:05
PROVIDERS: ADMIT Internal Medicine; ATTEND Internal Medicine
DX: J96.01 Acute respiratory failure with hypoxia (principal); J45.21 Mild intermittent asthma with (acute) exacerbation; E66.9 Obesity, unspecified; Z68.38 Body mass index [BMI] 38.0-38.9, adult; I10 Essential (primary) hypertension; D50.9 Iron deficiency anemia, unspecified; F17.210 Nicotine dependence, cigarettes, uncomplicated; Z87.09 Personal history of other diseases of the respiratory system; Z71.6 Tobacco abuse counseling
CPT/HCPCS: 36415; 71046; 80053; 84484; 85025; 87804; 93005; 94640; 94760; 96374; J1100; J7512; J7613; J7620; J7626; 99285-25

== ENCOUNTER 2019-05-23 12:53 | Emergency (ER) | payer BC ==
[~2019-05-23] VITALS: Ht 172.7 cm; Wt 97.5 kg
[~2019-05-23 12:53] MED LIST changes: +ALBU2.5V8 IH; +AMOX500C PO; +DICL50TA4 PO
[2019-05-23] MEDS ORDERED: predniSONE 20 MG TABLET PO ONE (15:15)
[2019-05-23] MEDS ORDERED: IPRATRPIUM/ALBUTEROL 0.5/2.5MG 3 ML NEBU. NEB ONE ×2 (15:15→16:30)
[2019-05-23] MEDS ORDERED: PRED50TA PO (15:20)
--- NOTE | 2019-05-23 15:20 | PHYS DOC ---
Past Medical History Past Medical History: Asthma Additional Past Medical Histor: URI Past Surgical History: No Surgical History Additional Information: 09/24 PPD Alcohol Use: None Drug Use: None Adult General Chief Complaint Chief Complaint: CHEST WALL PAIN HPI HPI 23-year-old female presenting the emergency department today with cough for the past 48 hours with mild shortness of breath and sharp chest pain. Her chest pain is a sharp shooting nonradiating mild pain that is worse when she coughs. She denies unilateral leg swelling hemoptysis or recent surgery or immobilization. Her cough is nonproductive. She has not been using her inhaler for her asthma for the past 4 days. Review of systems is negative for abdominal pain diaphoresis headache fevers or chills. All other review of systems is negative. ED course: 23-year-old female presenting with cough chest pain and wheezing with shortness of breath. EKG and chest x-ray ordered. Prednisone and inhalers ordered. Chest x-ray unremarkable. We will discharge home with prednisone to use inhaler as needed for wheezing and cough. Follow-up with PCP in one to 2 days. Current Medications Current Medications Current Medications Medications (Trade) Dose Ordered Sig/Harjeet Start Time Stop Time Status Last Admin Dose Admin Albuterol/ Ipratropium (Duoneb) 3 ml 1X ONCE 05/23/19 15:15 05/23/19 15:16 DC Prednisone (Prednisone) 50 mg 1X ONCE 05/23/19 15:15 05/23/19 15:16 DC 05/23/19 15:34 50 MG Allergies Allergies Allergies Coded Allergies Type Severity Reaction Last Updated Verified No Known Drug Allergies 05/30/14 No Physical Exam Physical Exam Constitutional: Well developed, well nourished, no acute distress, non-toxic appearance. [] HENT: Normocephalic, atraumatic, bilateral external ears normal, oropharynx moist, no oral exudates, nose normal. [] Eyes: PERRLA, EOMI, conjunctiva normal, no discharge. [] Neck: Normal range of motion, no tenderness, supple, no stridor. [] Cardiovascular:Heart rate regular rhythm, no murmur [] Lungs & Thorax: Wheezing with prolonged expiratory phase. Not in respiratory distress. Resting comfortably in the examination room. Abdomen: Bowel sounds normal, soft, no tenderness, no masses, no pulsatile masses. [] Skin: Warm, dry, no erythema, no rash. [] Back: No tenderness, no CVA tenderness. [] Extremities: No tenderness, no cyanosis, no clubbing, ROM intact, no edema. [] Neurologic: Alert and oriented X 3, normal motor function, normal sensory function, no focal deficits noted. [] Psychologic: Affect normal, judgement normal, mood normal. [] Current Patient Data Vital Signs Vital Signs Date Time Temp Pulse Resp B/P (MAP) Pulse Ox O2 Delivery O2 Flow Rate FiO2 05/23/19 13:57 98.3 96 20 148/71 (96) 95 Room Air 98.3 EKG EKG [] Radiology/Procedures Radiology/Procedures [] Course & Med Decision Making Course & Med Decision Making Pertinent Labs and Imaging studies reviewed. (See chart for details) [] Dragon Disclaimer Dragon Disclaimer This electronic medical record was generated, in whole or in part, using a voice recognition dictation system. Departure Departure Impression: Primary Impression: Cough Additional Impressions: Chest pain Upper respiratory infection Disposition: HOME, SELF-CARE Condition: STABLE Referrals: NO PCP (PCP) Patient Instructions: Acute Bronchitis, Chest Pain (Nonspecific) Additional Instructions: Thank you for allowing us to participate in your care today. Return to the emergency department you have any new or worsening symptoms, or if you are concerned for any reason. Return to emergency department if you have any new or concerning symptoms including but not limited to fever, chills, nausea, vomiting, intractable pain, any new rashes, chest pain, shortness of air, uncontrolled bleeding, difficulty breathing, and/or vision loss. Follow up with your primary care physician within 1-2 days. Call your Primary Doctor tomorrow and inform them of your visit today. If you do not have a primary care provider we are happy to provide you with a list of our primary care providers contact information. This condition should be evaluated by your primary care physician and any recommended consulting services for continued management within 2 days after discharge. If at any time, you are having difficulty getting into your primary care doctor or a specialist, return to the emergency department. Scripts Prednisone (PREDNISONE) 50 Mg Tablet 1 TAB PO DAILY, #4 TAB starting on 9/2 for 4 days. Prov: JOSE PERKINS MD 05/23/19 Problem Qualifiers JOSE PERKINS MD May 23, 2019 15:20
--- NOTE | 2019-05-23 15:27 | RAD ---
CHEST PA LATERAL History: Cough Comparison: 11/29/2018 two-view chest x-ray exam. Findings: The cardiomediastinal silhouette is normal. Pulmonary vasculature is normal. The lungs are clear. No pleural effusion or pneumothorax is seen. There is no acute bone abnormality. IMPRESSION: No acute cardiopulmonary process. Electronically signed by: Porter Nichols MD (05/23/2019 3:24 PM) [id number]
[2019-05-23] MEDS ORDERED: ALBU2.5V8 INH (17:11)
[2019-05-23 17:19] VITALS: BP 124/64
--- NOTE | 2019-05-24 06:42 | EKG ---
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
== END 2019-05-23 17:22 | disposition home or self-care (01) ==
LOC: ER 12:53
DX: J06.9 Acute upper respiratory infection, unspecified (principal); R07.89 Other chest pain; J45.909 Unspecified asthma, uncomplicated; F17.200 Nicotine dependence, unspecified, uncomplicated
CPT/HCPCS: 71046; 93005; 94640; 99284; J7512; J7620